=== PATIENT | male | born 1945 | race Caucasian/White ===

== ENCOUNTER 2018-08-26 13:45 | Emergency (ER) | payer OTHER ==
--- OUTSIDE RECORDS SUMMARY | 2018-08-26 13:47 | XMS REPORT ---
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
--- OUTSIDE RECORDS SUMMARY | 2018-08-26 13:47 | XMS REPORT ---
:1945 Author Organization e[employer] Care Team Providers Name Role Phone Lan Goldman Provider Role Unavailable Allergies, Adverse Reactions, Alerts Substance Reaction Event Type N.K.D.A. 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 Active Assessment Other specific arthropathies, not M12.812 Active elsewhere classified, left shoulder Assessment Pain in joint of left shoulder M25.512 Active Medications Medication Code Code Instructions Start End Status Dosage System Date Date aspirin ND 0 Active not defined Metoprolol [facility] 76376556124 25 MG Orally Active 1 tablet Tartrate Twice a day with food Valsartan ND 86092476003 80 MG Orally Active 1 tablet Once a day Apixaban [facility] [address]-23 2.5 MG Orally Active as directed Atorvastatin ND 61911789917 80 MG Orally Active 1 tablet Calcium Once a day Sertraline HCl [facility] 37522602136 100 MG Oral Active TK 1 T PO QD Valacyclovir ND 68688651984 500 MG Orally Active 1 tablet HCl Once a day Trazodone HCl [facility] 69205162957 50 MG Orally Active 1 tablet Once a day at bedtime as needed HydrOXYzine HCl [facility] 65979041145 10 MG Orally Active as directed Hydrocodone-Richard ND 99575383742 10-325 MG Oral Active (Schedule taminophen II Drug) TK 1 T PO Q 6 H PRF PAIN Alprazolam ND 62692568674 1 MG Oral Active (Schedule IV Drug) TK 1 T PO BID FOR 30 DAYS. Results No Known Results Summary Purpose eClinicalWorks Submission
--- NOTE | 2018-08-26 14:45 | ER ---
Nurse's Notes [facility] Name: Wallace Marroquin Age: 73 yrs Sex: Male : 1945 Arrival Date: 08/26/2018 Time: 13:48 Bed 17 Private MD: Diagnosis: Irritability and anger Presentation: 08/26 13:52 Presenting complaint: Patient states: denies suicidal or homicidal ideation. "I don't sv know why I'm here.". 13:52 Presenting complaint: states: "He has said that he's suicidal and he's sv progressively gotten more violent and yelling and I need him admitted. I'm scared of him.". Transition of care: patient was not received from another setting of care. Onset of symptoms is unknown. Risk Assessment: Do you want to hurt yourself or someone else? Patient reports no desire to harm self or others. Care prior to arrival: None. 13:52 Method Of Arrival: Ambulatory sv 13:52 Acuity: JOANIE 3 sv Triage Assessment: 13:54 General: Appears in no apparent distress. comfortable, well developed, Behavior is sv calm, cooperative, appropriate for age. Pain: Denies pain. Neuro: Level of Consciousness is awake, alert, obeys commands, Oriented to person, place, time, situation, Gait is steady. Respiratory: Respiratory effort is even, unlabored, Respiratory pattern is regular, symmetrical. Historical: - Allergies: 13:54 No Known Allergies; sv - PMHx: 13:54 Arthritis; Atrial Fib; spinal stenosis; sv - PSHx: 13:54 rotator cuff; Hernia repair; sv Screenin:23 Abuse screen: Denies threats or abuse. Nutritional screening: No deficits noted. em Tuberculosis screening: No symptoms or risk factors identified. Fall Risk None identified. Assessment: 14:23 General: Appears in no apparent distress. comfortable, Behavior is calm, cooperative, em denies SI/HI, reports being very frustrated with family dynamics, at bedside states he is been angry and needs to see someone. Pain: Denies pain. Neuro: Level of Consciousness is awake, alert, obeys commands. Cardiovascular: Capillary refill < 3 seconds Patient's skin is warm and dry. Respiratory: Airway is patent Respiratory effort is even, unlabored, Respiratory pattern is regular, symmetrical. Derm: Skin is intact, is healthy with good turgor, Skin is pink, warm \\T\\ dry. Musculoskeletal: Capillary refill < 3 seconds, Range of motion: intact in all extremities. Vital Signs: 13:54 BP 118 / 74; Pulse 68; Resp 16; Temp 98.9; Pulse Ox 96% ; Weight 96.62 kg; Height 5 ft. sv 11 in. (180.34 cm); Pain 0/10; 13:54 Body Mass Index 29.71 (96.62 kg, 180.34 cm) sv ED Course: 13:48 Patient arrived in ED. mr 13:53 Triage completed. sv 13:54 Arm band placed on. sv 14:00 Gonzalo Duvall LVN is Primary Nurse. em 14:01 Josiah Acuna PA is PHCP. jr8 14:01 Jethro Moreno MD is Attending Physician. jr8 14:23 Patient has correct armband on for positive identification. Bed in low position. Call em light in reach. Adult w/ patient. 14:56 No provider procedures requiring assistance completed. Patient did not have IV access em during this emergency room visit. Administered Medications: No medications were administered Outcome: 14:44 Discharge ordered by . jr8 14:56 Discharged to home ambulatory, with family. em 14:56 Condition: good 14:56 Discharge instructions given to patient, family, Instructed on discharge instructions, follow up and referral plans. Demonstrated understanding of instructions, follow-up care. 14:57 Patient left the ED. em Signatures: Lamar Leon RN RN [facility] mr DuvallGonzalo LVN LVN em Josiah Acuna PA PA jr8
--- NOTE | 2018-08-26 14:45 | EDPHYS ---
Physician Documentation [facility] Name: Wallace Marroquin Age: 73 yrs Sex: Male : 1945 Arrival Date: 08/26/2018 Time: 13:48 Bed 17 Private MD: ED Physician Jethro Moreno HPI: 08/26 21:53 This 73 yrs old Male presents to ER via Ambulatory with complaints of jr8 Suicidal Ideation. 21:53 The patient presents to the emergency department with depression. Past psychiatric jr8 history: Prior diagnosis: depression, the patient has not had a prior suicide gesture, the patient does not have a previous inpatient psychiatric history. Associated signs and symptoms: The patient has no apparent associated signs or symptoms. Severity of symptoms: At their worst the symptoms were moderate in the emergency department the symptoms are unchanged. It is unknown whether or not the patient has had similar symptoms in the past. The patient has not recently seen a physician. of patient brought patient in today for mood change and depression. Stated that he is very angry and irritable. Stated that she was very upset with him last night and told him if it was so bad to take a bottle of his Xanax. Patient proceeded to dump a bunch of pills in his mouth. Stated that he did not swallow them but was very upset with her and wanted to scare her. Promptly spit them out and washed them down the sink. Patient denies SI/HI. Stated that this all was started because he hates his mother in law and was tired of her demeaning and rude comments to him and couldn't take it any longer. Historical: - Allergies: 13:54 No Known Allergies; sv - PMHx: 13:54 Arthritis; Atrial Fib; spinal stenosis; sv - PSHx: 13:54 rotator cuff; Hernia repair; sv ROS: 21:53 Eyes: Negative for injury, pain, redness, and discharge, ENT: Negative for injury, jr8 pain, and discharge, Neck: Negative for injury, pain, and swelling, Cardiovascular: Negative for chest pain, palpitations, and edema, Respiratory: Negative for shortness of breath, cough, wheezing, and pleuritic chest pain, Abdomen/GI: Negative for abdominal pain, nausea, vomiting, diarrhea, and constipation, Back: Negative for injury and pain, MS/Extremity: Negative for injury and deformity, Skin: Negative for injury, rash, and discoloration, Neuro: Negative for headache, weakness, numbness, tingling, and seizure. 21:53 Psych: Positive for depression, Negative for homicidal ideation, suicide gesture, suicidal ideation. Exam: 21:53 Eyes: Pupils equal round and reactive to light, extra-ocular motions intact. Lids and jr8 lashes normal. Conjunctiva and sclera are non-icteric and not injected. Cornea within normal limits. Periorbital areas with no swelling, redness, or edema. ENT: Nares patent. No nasal discharge, no septal abnormalities noted. Tympanic membranes are normal and external auditory canals are clear. Oropharynx with no redness, swelling, or masses, exudates, or evidence of obstruction, uvula midline. Mucous membranes moist. Neck: Trachea midline, no thyromegaly or masses palpated, and no cervical lymphadenopathy. Supple, full range of motion without nuchal rigidity, or vertebral point tenderness. No Meningismus. Cardiovascular: Regular rate and rhythm with a normal S1 and S2. No gallops, murmurs, or rubs. Normal PMI, no JVD. No pulse deficits. Respiratory: Lungs have equal breath sounds bilaterally, clear to auscultation and percussion. No rales, rhonchi or wheezes noted. No increased work of breathing, no retractions or nasal flaring. Abdomen/GI: Soft, non-tender, with normal bowel sounds. No distension or tympany. No guarding or rebound. No evidence of tenderness throughout. Back: No spinal tenderness. No costovertebral tenderness. Full range of motion. Skin: Warm, dry with normal turgor. Normal color with no rashes, no lesions, and no evidence of cellulitis. MS/ Extremity: Pulses equal, no cyanosis. Neurovascular intact. Full, normal range of motion. Neuro: Awake and alert, GCS 15, oriented to person, place, time, and situation. Cranial nerves II-XII grossly intact. Motor strength 5/5 in all extremities. Sensory grossly intact. Cerebellar exam normal. Normal gait. 21:53 Psych: Behavior/mood is cooperative, angry, Affect is animated, Oriented to person, place, time, Patient has no thoughts/intents to harm self or others. Judgement / Insight is normal. Memory is normal. Delusions/hallucinations are not present. Vital Signs: 13:54 BP 118 / 74; Pulse 68; Resp 16; Temp 98.9; Pulse Ox 96% ; Weight 96.62 kg; Height 5 ft. sv 11 in. (180.34 cm); Pain 0/10; 13:54 Body Mass Index 29.71 (96.62 kg, 180.34 cm) sv MDM: 14:30 Patient medically screened. jr8 14:44 Data reviewed: vital signs, nurses notes, and as a result, I will discharge patient. jr8 Data interpreted: Pulse oximetry: on room air is 96 %. Interpretation: normal. Counseling: I had a detailed discussion with the patient and/or guardian regarding: the historical points, exam findings, and any diagnostic results supporting the discharge/admit diagnosis, the need for outpatient follow up, a family practitioner, a psychiatrist, to return to the emergency department if symptoms worsen or persist or if there are any questions or concerns that arise at home. 21:53 ED course: Discussed with patient and that patient is very angry. Needs to use jr8 calming techniques and remove himself from the toxic environment so it does not get worse. Explained to him that he had bad judgement by acting as if he was going to swallow all the pills. Otherwise currently does not display any signs of SI and is of sound mind currently. Therefore if he wants to leave and not be evaluated it is at his discretion and that I cannot hold him against his will. I further advised patient to see a private psychiatrist since the AR is not helping him and to continue new antidepressant medication for now unless he started to have acute new mood changes or Suicidal thoughts. Everybody was good with plan and would follow up . Administered Medications: No medications were administered Disposition: 17:14 Co-signature as Attending Physician, Jethro Moreno MD. ma2 Disposition: 08/26/18 14:44 Discharged to Home. Impression: Irritability and anger. - Condition is Stable. - Discharge Instructions: Tips for Managing Your Anger, Suicidal Feelings: How to Help Yourself, Helping Someone Who is Suicidal. - Medication Reconciliation Form, Thank You Letter, Antibiotic Education, Prescription Opioid Use form. - Follow up: Private Physician; When: 2 - 3 days; Reason: Recheck today's complaints, Continuance of care, Re-evaluation by your physician. - Problem is new. - Symptoms have improved. Signatures: Lamar Leon RN RN sv Gonzalo Duvall, CHARGING MANIPULATOR CHARGING MANIPULATOR em Josiah Acuna PA PA jr8 Jethro Moreno MD MD ma2 Corrections: (The following items were deleted from the chart) 14:57 14:44 08/26/2018 14:44 Discharged to Home. Impression: Irritability and anger. em Condition is Stable. Forms are Medication Reconciliation Form, Thank You Letter, Antibiotic Education, Prescription Opioid Use. Follow up: Private Physician; When: 2 - 3 days; Reason: Recheck today's complaints, Continuance of care, Re-evaluation by your physician. Problem is new. Symptoms have improved. jr8
== END 2018-08-26 14:57 | disposition home or self-care (01) ==
LOC: ER 13:45
DX: R45.4 Irritability and anger (principal)
CPT/HCPCS: 99281

== ENCOUNTER 2019-12-11 07:36 | Day surgery (SDC) | payer OTHER ==
--- NOTE | 2019-12-07 16:53 | RAD REPORT ---
EXAM DESCRIPTION: RAD - Chest Pa And Lat (2 Views) - 12/07/2019 4:33 pm CLINICAL HISTORY: pre op Chest pain. COMPARISON: Chest Pa And Lat (2 Views) dated 05/30/2018; Chest Pa And Lat (2 Views) dated 07/01/2017 FINDINGS: The lungs are clear. The heart is mildly enlarged in size with a tortuous thoracic aorta. No displaced fractures.
[2019-12-07 17:05] LABS: BUN Blood Urea Nitrogen 12 mg/dL (7-18); Bicarbonate 26 mmol/L (21-32); Glucose Level 82 mg/dL (74-106); Potassium 4.2 mmol/L (3.5-5.1); Sodium Level 142 mmol/L (136-145)
[2019-12-07 17:09] LABS: Absolute Lymphocytes (CBC) 1.3 K/uL (0.7-4.9); Basophils % 0.6 % (0-1.3); Hematocrit 47.1 % (39.6-49.0); RBC Red Blood Cell Count 4.29 M/uL (4.33-5.43)
[2019-12-07 20:06] LABS: Blood Morphology Comment NOTED (NOT SEEN); Macrocytosis 1+; Platelet Estimate ADEQ; Urine White Blood Cell Casts OK
--- NOTE | 2019-12-10 07:53 | EKG ---
Test Date: 2019-12-07 Test Time: 16:12:03 Template Layout Worker: TG MEASUREMENT RESULTS: Intervals: Rate: 71 TX: QRSD: 104 QT: 400 QTc: 434 Honor: P: TX: QRS: 57 T: 49 INTERPRETIVE STATEMENTS: Atrial fibrillation Abnormal ECG Compared to ECG 07/01/2017 17:23:16 No significant changes Electronically Signed On 12-10-19 07:49:57 CDT by Lee Foreman
--- OUTSIDE RECORDS SUMMARY | 2019-12-11 07:38 | XMS REPORT | Continuity of Care Document ---
:1945 Author Organization [facility] t Address [address] [place] [address] Care Team Providers Name Role Phone Radiology Attending Clinician Unavailable Doctor Unassigned, Name Attending Clinician Unavailable Mesfin Bullard MD Attending Clinician Problems Condition Condition Condition Status Onset Resolution Last Treating Co mments Source Name Details Category Date Date Treatment Clinician Date Unspecifie Unspecifie Problem Active [facility] rotator d rotator Luke s - cuff tear cuff tear Martín ana m or rupture or rupture l of left of left Outpati shoulder, shoulder, ent not not Clinics specified specified as as traumatic traumatic Complete Complete Problem Active [facility] of [facility] - left left Memoria rotator rotator l cuff cuff Outpati ent Clinics Other Other Problem Active [facility] specific specific [facility] - arthropath arthropath Me moria ies, not ies, not l elsewhere elsewhere Outp ati classified classified en t , left , left Clinics shoulder shoulder Allergies, Adverse Reactions, Alerts This patient has no known allergies or adverse reactions. Medications Ordered Filled Start Stop Current Ordering Indication Dosage Frequency Signature Comments Components Source Medication Medication Date Date Medication? Clinician (SIG) Name Name aspirin aspirin Yes Lan not [facility] Goldman defined [facility] Metoprolol Metoprolol Yes Lan [address] [facility] [address] Tartrate Tartrate Goldman with food Ayanna kes - [facility] Clinics Valsartan Valsartan Yes Lan [address] [facility] Goldman [facility] Apixaban Apixaban Yes Lan as [facility] Goldman directed [facility] Atorvastati Atorvastati Yes Lan [address] [facility] n Calcium n Calcium Goldman [facility] Sertraline Sertraline Yes Lan TK [address] [facility] HCl HCl Goldman QD [facility] Valacyclovi Valacyclovi Yes Lan [address] [facility] r HCl r HCl Goldman [facility] Trazodone Trazodone Yes Lan [address] [facility] HCl HCl Goldman at bedtime [facility] - as needed [facility] HydrOXYzine HydrOXYzine Yes Lan as [facility] HCl HCl Goldman directed [facility] Hydrocodone Hydrocodone Yes Lan (Schedule [facility] -Acetaminop -Acetaminop Goldman II Drug) Ayannakes - hen hen TK 1 T PO Memoria Q 6 H PRF l PAIN Outpati ent Clinics Alprazolam Alprazolam Yes Lan (Schedule [facility] Goldman IV Drug) Lukes - TK 1 T PO Memoria BID FOR 30 l DAYS. Outpati ent Clinics Procedures This patient has no known procedures. Encounters Start End Encounter Admission Attending Care Care Encounter Source Date/Time Date/Time Type Type Clinicians Facility Department ID 2019-11-13 2019-11-13 Hospital Radiology [facility] [id number] 14:10:00 23:59:00 Encounter Sandra [id number] [place] [id number] [place] [id number] 2019-11-13 2019-11-13 Orders Doctor CLYDE [id number] 00:00:00 00:00:00 Only Unassigned, MARIA L [id number] [place] [id number] [id number] 2019-07-08 2019-07-08 Emergency Zechariah Bullard [facility] [id number] 20:24:19 23:55:00 Zechariah Bullard [id number] [place] [id number] [place] [id number] 2018-04-13 2018-04-13 [facility] [id number] [facility] 09:12:00 09:12:00 [facility] 2018-04-05 2018-04-05 [facility] [id number] [facility] 13:30:00 13:30:00 t [facility] Results This patient has no known results.
[2019-12-11] MEDS ORDERED: FENTANYL CITR 100 MCG/2 ML ONE (08:26)
[2019-12-11] MEDS ORDERED: LIDOCAINE 1% MPF 5 ML VIAL ONE (08:27)
[2019-12-11] MEDS ORDERED: propofoL 200 MG/20 ML VIAL IV ONE (08:27)
[2019-12-11] MEDS ORDERED: MIDAZOLAM HCL 2 MG/2 ML INJ ONE (08:27)
[2019-12-11] MEDS ORDERED: ROCURONIUM 50 MG/5 ML VIAL IV ONE (08:27)
[2019-12-11] MEDS ORDERED: CEFAZOLIN/SWI 1gm 1 GM/10 ML SYR ONE (09:00)
[2019-12-11] MEDS: Ringers Lactate 1,000 ML IV ONE ×2 (09:00→09:58)
[2019-12-11] MEDS ORDERED: LIDOCAINE JELLY 2%- 5 ML TUBE ONE (09:10)
[2019-12-11] MEDS ORDERED: dexAMETHasone 10 MG/ML VIAL ONE (09:49)
[2019-12-11] MEDS ORDERED: GLYCOPYRROLATE 0.2 MG/ML SYR ONE (09:49)
[2019-12-11] MEDS ORDERED: NEOSTIGMINE 1 MG/ML -5 ML ONE (09:50)
[2019-12-11] MEDS ORDERED: ONDANSETRON 4 MG/2 ML VIAL ONE (09:50)
[2019-12-11] MEDS ORDERED: KETOROLAC 30 MG/ML INJ ONE (09:50)
[2019-12-11] MEDS: HYDROMORPHONE HCL 1 MG/ML INJ ONE ×2 (10:15→10:25)
[2019-12-11] MEDS ORDERED: PROMETHAZINE INJ 25 MG/ML AMP ONE (10:23)
[2019-12-11] MEDS ORDERED: HYDROCODONE/APAP 5/325 MG TAB ONE (11:53)
[2019-12-11 13:48] VITALS: BP 138/80; TEMP 97.1; O2SAT 96
--- NOTE | 2019-12-11 20:16 | OP ---
Date of Procedure: 12/11/2019 Surgeon: Andrew Head MD Preoperative Diagnoses: Incarcerated tender umbilical hernia, chronic pancreatitis, morbid obesity. Postoperative Diagnoses: Incarcerated tender umbilical hernia, chronic pancreatitis, morbid obesity. Procedure: Open repair of tender incarcerated umbilical hernia with mesh. Anesthesia: General plus local. Indications: This is a case of a 74-year-old patient, who come to us with abdominal distention. He was diagnosed with diastasis recti, but also in the periumbilical region, the patient has an incarcer ated umbilical hernia. The benefits, alternatives, and risks of repair with possible mesh fully expl ained to the patient, which include, but not limited to infection, bleeding, damage to adjacent struc tures, anesthesia complication, recurrence, UT, and even . He also understands this may not rel ieve the symptoms. He might need more than one surgical intervention. He also explained the use of mesh. Mesh explanation was explained in details. All the questions were answered to his satisfactio n. He did consent for the use of mesh. He was advised the importance of also losing weight and usag e of abdominal binder and no heavy lifting. He signed a consent. Description Of Procedure: The patient was brought to the operating room, placed in supine position, and anesthesia was done without complication. Abdominal area was prepped and draped in a sterile fas hion. Local anesthesia was applied after time-out and then a curvilinear incision was made in the in fraumbilical region. Incision was carried down to subcutaneous tissue. We noticed a hernia sac pres ent, from the skin, opened the hernia sac and noticed incarcerated omentum that have to be removed with the specimen since he cannot reduce properly. This was done with a Ching clamp and 0 ch romic and before the rest of the omentum was pushed back into the abdominal cavity, we inspected to m marcela sure there was no bleeding. At that moment, we proceeded to remove the hernia sac, clean the fas estela edges. We noticed that it will be better served with the use of mesh due to the size of the inci brannon and be able to reinforce the area since the patient more cephalad has diastasis recti within the fascia, although not broken in that area. So, we introduced a Ventralex mesh intraperitoneally and then the strap coming through the incision and the mesh was secured to the fascia and sutured to the fascia with #1 Prolene in multiple locations. Once the mesh is nice and flat, we proceeded to cut th e strap and then approximated the fascia edges with a oocbeu-gx-sfsis fashion #1 Prolene multiple linda es. The area was irrigated. Subcutaneous tissue was closed with 3-0 chromic and the skin in a subcu ticular fashion with 3-0 chromic and Steri-Strips on top. Sponge counts and instrument counts were c orrect. The patient tolerated the procedure well. The patient was sent to recovery in stable condit ion. Disposition: Home. Activity: As tolerated. No heavy lifting. Plan: Follow up in my office in 1 week call for appointment at [phone]. Keep area dry until he see me in my office in 1 week. Medication includes hydrocodone q.4 hours p.r.n. pain. The patient has only a few. He received his pain medication from his [facility]. We gave him enough just to con trol for the next few days and he should consult back with his pain management doctor for refills in the future. He was also explained the importance of smoking cessation and help was an offer. NI/JS Voice ID: [id number] Report ID: [id number]
== END 2019-12-11 11:53 | disposition home or self-care (01) ==
LOC: OR 07:36
PROVIDERS: ATTEND Surgery
PROC: 0WUF0JZ Supplement Abdominal Wall with Synthetic Substitute, Open Approach (ICD-10-PCS; principal; 2019-12-11 09:15)
DX: K42.0 Umbilical hernia with obstruction, without gangrene (principal); M62.08 Separation of muscle (nontraumatic), other site; K86.1 Other chronic pancreatitis; E66.01 Morbid (severe) obesity due to excess calories; I48.91 Unspecified atrial fibrillation; R94.31 Abnormal electrocardiogram [ECG] [EKG]; Q25.46 Tortuous aortic arch; E78.00 Pure hypercholesterolemia, unspecified; I11.9 Hypertensive heart disease without heart failure; F43.10 Post-traumatic stress disorder, unspecified; F17.210 Nicotine dependence, cigarettes, uncomplicated; Z79.01 Long term (current) use of anticoagulants; Z79.82 Long term (current) use of aspirin; Z79.899 Other long term (current) drug therapy
CPT/HCPCS: 49587; 93005; 85025; 80048; 36415; 82947; 88302; 71046; J2704; J2550; J3010; J1100; J1170; J2710; J0690; J7120; J2405; J2250

== ENCOUNTER 2020-09-17 16:32 | Inpatient (IN) | payer OTHER ==
--- OUTSIDE RECORDS SUMMARY | 2020-09-17 16:36 | XMS REPORT | Continuity of Care Document ---
:1945 Author Organization [facility] t Address [address] [place] [address] Care Team Providers Name Role Phone Lexie LONDON Attending Clinician Problems Condition Condition Condition Status [...] Date Date Medication? Clinician (SIG) Name Name Atorvastati Atorvastati Yes Lan 1 tablet [facility] [...] bedtime [facility] - [facility] needed [facility] HydrOXYzine HydrOXYzine Yes Lan as [facility] HCl HCl Goldman directed [facility] Hydrocodone Hydrocodone Yes Lan (Schedule [facility] -Acetaminop -Acetaminop Goldman II Drug) [facility]ukes - hen hen TK 1 T PO Memoria Q 6 H PRF l PAIN [facility] Alprazolam Alprazolam Yes Lan (Schedule [facility] Goldman IV Drug) Lukes - TK 1 T PO Memoria BID FOR 30 l DAYS. [facility] aspirin aspirin Yes Lan not [facility] Goldman defined [facility] Metoprolol Metoprolol Yes Lan [address] Tartrate Tartrate Goldman with food Ayanna kes - [facility] Valsartan Valsartan Yes Lan [address] [facility] [facility] Apixaban Apixaban Yes Lan as [facility] Goldman directed kes - [facility] ent [facility] Procedures This patient has no known procedures. Encounters Start End Encounter Admission Attending Care Care Encounter Source Date/Time Date/Time Type Type Clinicians Facility Department ID 2020-08-30 2020-08-30 Office [facility] [id number] 08:23:34 09:30:16 Visit Caren Flores [id number] [place] [id number] [place] [id number] [address] 2018-04-13 2018-04-13 [place]patient [place] [id number] [address] 09:12:00 09:12:00 t [facility] 2018-04-05 2018-04-05 [facility] [id number] 13:30:00 13:30:00 t [facility] Results This patient has no known results.
[2020-09-17 20:21] LABS: Basophils % 1.4 % (0-1.3); Hematocrit 33.1 % (39.6-49.0); Lymphocytes % 24.1 % (15.3-44.8); MPV 8.5 fL (7.6-11.3); RBC Red Blood Cell Count 3.63 M/uL (4.33-5.43)
[2020-09-17 20:27] LABS: Protime INR 1.13
--- NOTE | 2020-09-17 20:51 | RAD REPORT ---
EXAM DESCRIPTION: RAD - Foot Left 3 View - 09/17/2020 8:43 pm CLINICAL HISTORY: Left Foot pain FINDINGS: No fracture or dislocation is seen.
[2020-09-17 20:59] LABS: ALT/SGPT 24 U/L (12-78); Albumin 3.4 g/dL (3.4-5.0); Alkaline Phosphatase 87 U/L (45-117); BUN Blood Urea Nitrogen 12 mg/dL (7-18); Bicarbonate 25 mmol/L (21-32); Bilirubin Direct < 0.1 mg/dL (0-0.2); Bilirubin Total 0.4 mg/dL (0.2-1.0); Glucose Level 103 mg/dL (74-106); NT PRO-BNP 1354 pg/mL (<125); Protein, Total 7.4 g/dL (6.4-8.2); Sodium Level 137 mmol/L (136-145); Troponin (Emerg Dept Use Only) < 0.02 ng/mL (0.0-0.045)
[2020-09-17 21:00] LABS: AST/SGOT 20 U/L (15-37); Magnesium 2.1 mg/dL (1.8-2.4); Potassium 4.6 mmol/L (3.5-5.1)
--- NOTE | 2020-09-17 21:15 | RAD REPORT ---
EXAM DESCRIPTION: Jeremy Single View09/17/2020 8:42 pm CLINICAL HISTORY: Chest pain COMPARISON: none FINDINGS: The lungs appear clear of acute infiltrate. The heart is mildly to moderately enlarged IMPRESSION: No acute abnormalities displayed
--- NOTE | 2020-09-17 22:07 | EDPHYS ---
Physician Documentation [facility] [place] Name: Wallace Marroquin Age: 75 yrs Sex: Male : 1945 Arrival Date: 09/17/2020 Time: 16:34 Bed 20 Private MD: ED Physician Art Martinez HPI: 09/17 20:00 This 75 yrs old Male presents to ER via Ambulatory with complaints of afib, cp Shortness Of Breath, Dizziness. 20:00 The patient has shortness of breath with light activity. cp 20:00 Onset: The symptoms/episode began/occurred gradually, and became worse over past cp several weeks. Duration: The symptoms are intermittent, with exertion. Associated signs and symptoms: Pertinent positives: chest pain, multiple falls. Historical: - Allergies: 16:53 No Known Allergies; jl7 - Home Meds: 16:53 Amiodarone Oral [Active]; Aspirin Oral [Active]; Metoprolol Tartrate Oral [Active]; jl7 Eliquis oral oral [Active]; atorvastatin Oral [Active]; [place] 10-325 mg Oral tab [Active]; - PMHx: 16:53 Arthritis; Atrial Fib; spinal stenosis; jl7 - PSHx: 16:53 Hernia repair; rotator cuff; jl7 - Immunization history:: Adult Immunizations up to date, Client reports receiving the 2nd dose of the Covid vaccine. - Social history:: Smoking status: Patient reports the use of cigarette tobacco products, smokes one-half pack cigarettes per day. ROS: 20:05 Constitutional: Negative for body aches, chills, fever, poor PO intake. cp 20:05 Eyes: Negative for injury, pain, redness, and discharge. cp 20:05 Cardiovascular: Positive for chest pain. 20:05 Respiratory: Positive for shortness of breath, on exertion. Negative for cough, wheezing. 20:05 Abdomen/GI: Negative for abdominal pain, nausea, vomiting, and diarrhea, black/tarry stool, rectal bleeding. 20:05 Skin: Positive for ecchymosis, of the buttocks. 20:05 Neuro: Negative for altered mental status, headache, speech changes, syncope. 20:05 All other systems are negative. Exam: 17:00 ECG was reviewed by the Attending Physician. cp 20:10 Constitutional: The patient appears in no acute distress, alert, awake, cp non-diaphoretic, non-toxic, well developed, well nourished. 20:10 Head/Face: Normocephalic, atraumatic. cp 20:10 Eyes: Periorbital structures: appear normal, Pupils: equal, round, and reactive to light and accomodation, Extraocular movements: intact throughout, Conjunctiva: normal, no exudate, no injection, Sclera: no appreciated abnormality, Lids and lashes: appear normal, bilaterally. 20:10 ENT: External ear(s): are unremarkable, Ear canal(s): cerumen impaction, that is moderate, occluding the right ear canal, Examination of the other ear shows no obvious abnormality, Nose: is normal, Mouth: Lips: moist, Oral mucosa: moist, Posterior pharynx: is normal, airway is patent, no erythema, no exudate. 20:10 Neck: ROM/movement: is normal, is supple, without pain, no range of motions limitations. 20:10 Chest/axilla: Inspection: normal, Palpation: is normal, no crepitus, no tenderness. 20:10 Cardiovascular: Rate: normal, Rhythm: irregular, JVD: is not appreciated. 20:10 Respiratory: the patient does not display signs of respiratory distress, Respirations: normal, no use of accessory muscles, no retractions, labored breathing, is not present, Breath sounds: bronchial sounds, that are mild, are heard diffusely. 20:10 Abdomen/GI: Inspection: obese Palpation: abdomen is soft and non-tender, in all quadrants. Vital Signs: 16:46 BP 135 / 73; Pulse 65; Resp 17; Temp 98.3(O); Pulse Ox 98% on R/A; Weight 108.86 kg; jl7 Height 5 ft. 11 in. (180.34 cm); Pain 6/10; 19:56 BP 132 / 77 Supine; Pulse 61; wh 19:56 BP 132 / 82 Sitting; Pulse 62; wh 19:56 BP 128 / 79 Standing; Pulse 65; wh 21:29 BP 138 / 86; Pulse 61; Resp 18; Pulse Ox 100% on R/A; wh 09/18 00:29 BP 129 / 74; Pulse 75; Resp 18; Pulse Ox 100% ; ak2 09/17 16:46 Body Mass Index 33.47 (108.86 kg, 180.34 cm) jl7 MDM: 09/17 19:51 Patient medically screened. cp 20:30 Differential diagnosis: CHF exacerbation, Myocardial Infarction pneumonia, Pneumothorax cp pulmonary edema, Pulmonary Embolism Unstable Angina. 22:01 Data reviewed: vital signs, nurses notes, lab test result(s), EKG. cp 22:01 Physician consultation: Moses CONTI was called at 22:02, was contacted at 22:02, cp regarding admission, to the telemetry unit. 09/17 20:08 Order name: Basic Metabolic Panel 09/17 20:08 Order name: CBC with Diff 09/17 20:08 Order name: LFT's 09/17 20:08 Order name: Magnesium 09/17 20:08 Order name: NT PRO-BNP 09/17 20:08 Order name: PT-INR 09/17 20:08 Order name: Troponin (emerg Dept Use Only) 09/17 20:23 Order name: CBC with Automated Diff; Complete Time: 20:44 EDMS 09/17 20:44 Interpretation: Normal except: RBC 3.63; HGB 10.8; HCT 33.1; MCV 91.2; MCH 29.6; RDW cp 19.8; BASO% 1.4. 09/17 20:30 Order name: Protime (+INR); Complete Time: 20:44 EDMS 09/17 21:01 Order name: Basic Metabolic Panel; Complete Time: 21:10 EDMS 09/17 21:19 Interpretation: Reviewed. 09/17 21:01 Order name: Liver (Hepatic) Function; Complete Time: 21:10 EDMS 09/17 21:01 Order name: Troponin (Emerg Dept Use Only); Complete Time: 21:10 EDMS 09/17 21:01 Order name: NT PRO-BNP; Complete Time: 21:10 EDMS 09/17 21:01 Order name: Magnesium; Complete Time: 21:10 EDMS 09/17 20:08 Order name: XRAY Chest (1 view) 09/17 20:08 Order name: EKG; Complete Time: 20:09 09/17 20:08 Order name: Cardiac monitoring 09/17 20:08 Order name: EKG - Nurse/Tech 09/17 20:08 Order name: IV Saline Lock 09/17 20:08 Order name: Labs collected and sent 09/17 20:08 Order name: O2 Per Protocol 09/17 20:08 Order name: O2 Sat Monitoring 09/17 20:09 Order name: XRAY Foot LEFT 3 View 09/17 20:09 Order name: CT Traumagram (Head C Spine CAP W Con) 09/17 20:53 Order name: RAD; Complete Time: 20:57 EDNJ 09/17 20:57 Interpretation: Report reviewed. 09/17 21:15 Order name: RAD; Complete Time: 21:16 EDNJ 09/17 21:17 Interpretation: Report reviewed. 09/17 22:04 Order name: COVID-19 : Document "Date of Symptom Onset" if Symptomatic. 09/17 22:39 Order name: CORONAVIRUS EDNJ 09/17 23:55 Order name: SARS-COV-2 RT PCR EDMS EC:00 Rate is 65 beats/min. Rhythm is irregular. QRS interval is normal. QT interval is cp normal. Interpreted by me. Reviewed by me. Administered Medications: No medications were administered Disposition: 09/18 16:51 Co-signature as Attending Physician, Art Martinez MD I agree with the assessment and [facility] plan of care. Disposition: 09/17/20 22:06 Hospitalization ordered by Moses Amato for Observation. Preliminary diagnosis are Fall on same level from slipping, tripping and stumbling, Chest pain, unspecified, Chronic atrial fibrillation. - Bed requested for Telemetry/MedSurg (observation). - Status is Observation. ak2 - Condition is Stable. - Problem is new. - Symptoms have improved. Signatures: Dispatcher [employer] EDNJ Art Martinez MD MD cha Page, Corey, PA PA cp Garcia, Cindy RN RN Benita Powers RN RN jl7 Kapolka, Anthony ak2 Corrections: (The following items were deleted from the chart) 09/17 20:10 20:10 This 75 yrs old Male presents to ER via Ambulatory with complaints of cp afib, Shortness Of Breath, Dizziness. cp 22:07 22:06 Hospitalization Ordered by Chester Jackson MD for Observation. Preliminary cp diagnosis is Fall on same level from slipping, tripping and stumbling; Other chest pain. Bed requested for Telemetry/MedSurg (observation). Status is Observation. Condition is Stable. Problem is new. Symptoms have improved. cp :25 22:07 09/17/2020 22:06 Hospitalization Ordered by Chester Jackson MD for Observation. cp Preliminary diagnosis is Fall on same level from slipping, tripping and stumbling; Chest pain, unspecified; Chronic atrial fibrillation. Bed requested for Telemetry/MedSurg (observation). Status is Observation. Condition is Stable. Problem is new. Symptoms have improved. cp 09/18 00:09 09/17 22:25 09/17/2020 22:06 Hospitalization Ordered by Moses CONTI for cg Observation. Preliminary diagnosis is Fall on same level from slipping, tripping and stumbling; Chest pain, unspecified; Chronic atrial fibrillation. Bed requested for Telemetry/MedSurg (observation). Status is Observation. Condition is Stable. Problem is new. Symptoms have improved. 09/18 00:53 00:09 09/17/2020 22:06 Hospitalization Ordered by Moses CONTI for Observation. ak2 Preliminary diagnosis is Fall on same level from slipping, tripping and stumbling; Chest pain, unspecified; Chronic atrial fibrillation. Bed requested for Telemetry/MedSurg (observation). Status is Observation. Condition is Stable. Problem is new. Symptoms have improved. cg
--- NOTE | 2020-09-17 22:07 | ER ---
Nurse's Notes [facility] Name: Wallace Marroquin Age: 75 yrs Sex: Male : 1945 Arrival Date: 09/17/2020 Time: 16:34 Bed 20 Private MD: Diagnosis: Fall on same level from slipping, tripping and stumbling;Chest pain, unspecified;Chronic atrial fibrillation Presentation: 09/17 16:46 Chief complaint: Patient states: Shortness of breath, lightheaded and falling over the jl7 past year and it's progressively gotten worse, last fall was Wednesday and reports hematoma to left buttocks. Coronavirus screen: Client denies travel out of the [place] in the last 14 days. At this time, the client does not indicate any symptoms associated with coronavirus-19. Ebola Screen: No symptoms or risks identified at this time. Initial Sepsis Screen: Does the patient meet any 2 criteria? No. Patient's initial sepsis screen is negative. Does the patient have a suspected source of infection? No. Patient's initial sepsis screen is negative. Risk Assessment: Do you want to hurt yourself or someone else? Patient reports no desire to harm self or others. Onset of symptoms is unknown. Care prior to arrival: None. 16:46 Method Of Arrival: Ambulatory [facility] 16:46 Acuity: JOANIE 3 jl7 Triage Assessment: 20:00 General: Appears in no apparent distress. Behavior is calm, cooperative. Respiratory: wh No deficits noted. 20:00 Respiratory: Onset: The symptoms/episode began/occurred x1 year, worsening x1 week. 20:01 Respiratory: Reports Historical: - Allergies: 16:53 No Known Allergies; jl7 - Home Meds: 16:53 Amiodarone Oral [Active]; Aspirin Oral [Active]; Metoprolol Tartrate Oral [Active]; jl7 Eliquis oral oral [Active]; atorvastatin Oral [Active]; [place] 10-325 mg Oral tab [Active]; - PMHx: 16:53 Arthritis; Atrial Fib; spinal stenosis; jl7 - PSHx: 16:53 Hernia repair; rotator cuff; jl7 - Immunization history:: Adult Immunizations up to date, Client reports receiving the 2nd dose of the Covid vaccine. - Social history:: Smoking status: Patient reports the use of cigarette tobacco products, smokes one-half pack cigarettes per day. Screenin:59 Abuse screen: Denies threats or abuse. Denies injuries from another. Nutritional wh screening: No deficits noted. Tuberculosis screening: No symptoms or risk factors identified. Fall Risk None identified. Assessment: 19:59 Pain: Denies pain. Cardiovascular: Rhythm is atrial fibrillation. Respiratory: Airway. 20:00 Respiratory: Breath sounds are clear bilaterally. 20:01 Respiratory: Respiratory effort is even, unlabored. 09/18 00:35 General: Report called to rn. ak2 Vital Signs: 09/17 16:46 BP 135 / 73; Pulse 65; Resp 17; Temp 98.3(O); Pulse Ox 98% on R/A; Weight 108.86 kg; jl7 Height 5 ft. 11 in. (180.34 cm); Pain 6/10; 19:56 BP 132 / 77 Supine; Pulse 61; wh 19:56 BP 132 / 82 Sitting; Pulse 62; wh 19:56 BP 128 / 79 Standing; Pulse 65; wh 21:29 BP 138 / 86; Pulse 61; Resp 18; Pulse Ox 100% on R/A; wh 09/18 00:29 BP 129 / 74; Pulse 75; Resp 18; Pulse Ox 100% ; ak2 09/17 16:46 Body Mass Index 33.47 (108.86 kg, 180.34 cm) jl7 ED Course: 09/17 16:34 Patient arrived in ED. as 16:50 Triage completed. jl7 16:53 Arm band placed on right wrist. Patient placed in waiting room, Patient notified of jl7 wait time. EKG completed in triage. Results shown to MD. 19:31 Tremayne Jimenez, RN is Primary Nurse. 19:34 Art Jang PA is PHCP. cp 19:34 Leonid Lujan MD is Attending Physician. cp 19:52 Art Martinez MD is Attending Physician. cp 19:59 Patient has correct armband on for positive identification. 19:59 No provider procedures requiring assistance completed. Inserted saline lock: 20 gauge wh in right antecubital area, using aseptic technique. 22:06 Chester Jackson MD is Hospitalizing Provider. cp 22:25 Moses Amato PA is Hospitalizing Provider. cp Administered Medications: No medications were administered Outcome: 22:06 Decision to Hospitalize by Provider. keith 09/18 00:53 Patient left the ED. ak2 Signatures: Valencia Head Corey, PA PA cp Leal, Jahala RN RN jl7 Tremayne Jimenez RN RN Indio Benavidez ak2
[2020-09-18] MEDS ORDERED: ACETAMINOPHEN 500 MG TAB PO PRN (00:36)
[2020-09-18] MEDS ORDERED: ONDANSETRON 4 MG/2 ML VIAL IV PRN (00:36)
[2020-09-18] MEDS ORDERED: LORazepam 2 MG/ML VIAL IV PRN (00:36)
[2020-09-18] MEDS ORDERED: ALBUTEROL 2.5 MG/3 ML NEB SOL NEB PRN (00:36)
[2020-09-18] MEDS: HYDROCODONE/APAP 10/325 TAB PO PRN ×4 (00:49→22:04)
[2020-09-18 01:04] VITALS: BMI 33.0
[2020-09-18] MEDS: GABAPENTIN 300 MG CAP PO SCH ×4 (02:09→21:05)
[2020-09-18] MEDS: TRAZODONE 50 MG TABLET PO PRN ×2 (02:09→21:05)
--- NOTE | 2020-09-18 04:30 | P.HP ---
Certification for Inpatient Patient admitted to: Observation With expected LOS: <2 Midnights Patient will require the following post-hospital care: None Practitioner: I am a practitioner with admitting privileges, knowledge of patient current condition, hospital course, and medical plan of care. Services: Services provided to patient in accordance with Admission requirements found in Title 42 Section 412.3 of the Code of Federal Regulations <Moses Amato - Last Filed: 09/18/20 04:38> Patient History Date of Service: 09/18/20 Reason for admission: presyncope History of Present Illness: Mr. Marroquin is a 75 yo M with afib, COPD, and HTN who reports to the ED for episodes of presyncope. He says they have been happening for a year and have been getting progressively worse. On Wednesday, he says he was smoking a cigarette when he became SOB, dizzy and fell. He says he remembers the event and did not lose consciousness and after 5 minutes he returned to baseline. He says the episodes happen with exertion. He reports mild chest tightness that occurs with the events. He was recently seen by cardiology and had an abnormal stress test. Reports lightheadedness, dizziness. Denies nausea, vomiting, palpitations, vision changes, loss of bowel or urine. He smokes 1/2 ppd. He drinks 2 20oz cans of beer daily. BNP 1534. - Past Medical/Surgical History Has patient received pneumonia vaccine in the past: Yes Diabetic: No -: afib -: arthritis -: spinal stenosis -: COPD -: R eye corneal ulcer -: hernia repair X4 -: rotator cuff repair X3 -: antonio knee replacement -: R leg aneurysm repair - Family History Father -: Heart disease, Cancer, Seizures Mother -: Cancer, Seizures - Social History Smoking Status: Current every day smoker Alcohol use: Yes CD- Drugs: No Caffeine use: Yes Place of Residence: Home <Moses Amato - Last Filed: 09/18/20 04:38> Date of Service: 09/18/20 <Jethro Dangelo - Last Filed: 09/19/20 09:31> Allergies bee venom protein (honey bee) Allergy (Verified 09/18/20 01:12) Anaphylaxis Review of Systems General: Unremarkable Eyes: Unremarkable ENT: Unremarkable Respiratory: Shortness of Breath, SOB with Excertion, As per HPI Cardiovascular: Chest Pain, Edema, Light Headedness, As per HPI Gastrointestinal: Unremarkable Genitourinary: Unremarkable Musculoskeletal: Back Pain, As per HPI Integumentary: Bruising, As per HPI Neurological: Unremarkable Lymphatics: Unremarkable <Moses Amato - Last Filed: 09/18/20 04:38> Physical Examination - Vital Signs Temperature: 96.4 F Blood Pressure: 129/74 Pulse: 75 Respirations: 18 Pulse Ox (%): 97 - Physical Exam General: Alert, In no apparent distress, Oriented x3, Cooperative HEENT: Atraumatic, Normocephalic, PERRLA, Mucous membr. moist/pink, EOMI, Sclerae nonicteric Neck: Supple, 2+ carotid pulse no bruit, JVD not distended, No Thyromegaly, No LAD Respiratory: Diminished, Expiratory wheezes Cardiovascular: Normal pulses, No gallops, No rubs, Edema, Irregular heart rate/rhythm Capillary refill: <2 Seconds Gastrointestinal: Normal bowel sounds, Soft and benign, Non-distended, No ascites, No tenderness, No masses, No rebound, No guarding Musculoskeletal: No clubbing, No swelling, No contractures, No erythema, No tenderness, No warmth Integumentary: No breakdown, No significant lesion, No warmth, No cyanosis, Rash(es), Tenderness/swelling, Erythema, Other (severe bruising on buttocks from fall ) Neurological: Normal speech, Normal strength at 5/5 x4 extr, Normal tone, Sensation intact, Cranial nerves 3-12 intact, Normal affect Lymphatics: No axilla or inguinal lymphadenopathy - Studies Laboratory Data (last 24 hrs) 09/17/20 20:10: PT 13.0 H, INR 1.13 09/17/20 20:10: WBC 8.50, Hgb 10.8 L, Hct 33.1 L, Plt Count 257 09/17/20 20:10: Sodium 137, Potassium 4.6, BUN 12, Creatinine 0.74, Glucose 103, Magnesium 2.1, Total Bilirubin 0.4, AST 20, ALT 24, Alkaline Phosphatase 87 <Moses Amato - Last Filed: 09/18/20 04:38> Assessment and Plan - Problems (Diagnosis) (1) Afib Current Visit: Yes Status: Chronic Qualifiers: Atrial fibrillation type: unspecified Qualified Code(s): I48.91 - Unspecified atrial fibrillation (2) COPD (chronic obstructive pulmonary disease) Current Visit: Yes Status: Chronic Qualifiers: COPD type: unspecified COPD Qualified Code(s): J44.9 - Chronic obstructive pulmonary disease, unspecified (3) Hypertension Current Visit: Yes Status: Chronic Qualifiers: Hypertension type: essential hypertension Qualified Code(s): I10 - Essential (primary) hypertension (4) Pre-syncope Current Visit: Yes Status: Acute - Plan cardiology consulted, on telemetry, trend troponins reconcile and continue home medications iron panel and b12/folate pending CIWA protocol and PRN ativan SCDs Discharge Plan: Home Plan to discharge in: 24 Hours - Advance Directives Does patient have a Living Will: Yes Does patient have a Durable POA for Healthcare: Yes - Code Status/Comfort Care Code Status Assessed: Yes (full code ) Critical Care: No Time Spent Managing Pts Care (In Minutes): 70 <Moses Amato - Last Filed: 09/18/20 04:38> Date of Service: 09/18/20 Subjective: Chart has been reviewed. Agree with plans as mentioned above. Physical Examination Vitals: Afebrile vital signs are stable General: Patient is awake and alert oriented to person place and time with no apparent distress Cardiovascular exam: Regular rate and rhythm Lungs: Clear bilaterally Diagnostic data has been reviewed ASST: 1. Near syncope with fall 2. History of atrial fibrillation on anti arrhythmic 3. History of hypertension PLAN: 1. Continue with current plan of care as mentioned above 2. Cardiology consultation <Jethro Dangelo - Last Filed: 09/19/20 09:31>
[2020-09-18 05:32] LABS: Absolute Lymphocytes (CBC) 1.6 K/uL (0.7-4.9); Basophils % 0.6 % (0-1.3); MPV 8.2 fL (7.6-11.3); RBC Red Blood Cell Count 3.36 M/uL (4.33-5.43)
[2020-09-18 06:05] LABS: ALT/SGPT 17 U/L (12-78); AST/SGOT 12 U/L (15-37); Albumin 2.9 g/dL (3.4-5.0); Alkaline Phosphatase 66 U/L (45-117); BUN Blood Urea Nitrogen 12 mg/dL (7-18); Bicarbonate 28 mmol/L (21-32); Bilirubin Total 0.4 mg/dL (0.2-1.0); Ferritin 24.1 ng/mL (26-388); Glucose Level 122 mg/dL (74-106); HDL Cholesterol 73 mg/dL (40-60); LDL Cholesterol, Calculated 66 (<130); Magnesium 2.1 mg/dL (1.8-2.4); Phosphorus 3.7 mg/dL (2.5-4.9); Potassium 3.9 mmol/L (3.5-5.1); Protein, Total 6.2 g/dL (6.4-8.2); Sodium Level 142 mmol/L (136-145); Thyroid Stimulating Hormone 0.788 uIU/mL (0.360-3.740); Transferrin 290 mg/dL (200-360)
[2020-09-18] MEDS ORDERED: POTASSIUM CL SA 10 MEQ TAB PO ONE (08:00)
--- NOTE | 2020-09-18 08:43 | EKG ---
Test Date: 2020-09-17 Test Time: 16:45:39 Edger Feeder: DARRION MEASUREMENT RESULTS: Intervals: Rate: 65 [place]: QRSD: 96 QT: 430 QTc: 447 [place]: P: [place]: QRS: 42 T: 35 INTERPRETIVE STATEMENTS: Atrial fibrillation Abnormal ECG Compared to ECG 12/07/2019 16:12:03 No significant changes Electronically Signed On 09-18-20 08:41:35 CDT by Lee Foreman
--- NOTE | 2020-09-18 11:13 | RAD REPORT ---
EXAM DESCRIPTION: CT - Head C Spine Cap W Con - 09/18/2020 7:09 am [facility]Lex: CT HEAD AND CERVICAL SPINE WITHOUT CONTRAST AND CT CHEST ABDOMEN PELVIS WITH CONTRAST CLINICAL HISTORY: Fall. TECHNIQUE: Axial, coronal, and sagittal images through the brain were performed in the absence of in travenous contrast. CT of the cervical spine was performed without contrast. Axial, coronal, and sagittal reconstructions were created and sent to PACS. CT of the chest, abdomen, and pelvis was performed following intravenous administration of iodinated contrast. Oral contrast was not administered. Axial, coronal, and sagittal reconstructions were creat ed and sent to PACS. These exams were performed according to our departmental dose-optimization program which includes use of Automated Exposure Control, adjustment of the mA and/or kV according to patient size and/or use o f iterative reconstruction technique. COMPARISON: None. FINDINGS: CT Head: There is diffuse age-appropriate atrophy seen throughout the brain parenchyma. Mild periventricular w abdiel matter changes are seen to be present and there is mild ex vacuo dilatation of the ventricular s ystem. There is no intra-axial or extra-axial bleed. There is no mass or mass effect. All Small mucosal retention cyst in the right maxillary sinus. The remaining visualized paranasal sinuses and mastoid air cells are patent. No fracture is identified. CT cervical spine: No acute osseous abnormality identified. Vertebral body height and alignment are maintained. No atlan todental interval widening. Atlantoaxial alignment is maintained. Small multilevel posterior disc ost eophyte complexes with no significant central canal narrowing. Mild neuroforaminal narrowing on the l eft at C3-4 and C4-5 due to uncinate hypertrophy. Paraspinal soft tissues: Unremarkable. CT chest/abdomen/pelvis: Lungs and pleura: Minimal atelectasis in the left lower lobe. No pulmonary consolidation/contusion. N o pleural effusion. No pneumothorax. Mediastinum and neck: No mediastinal lymphadenopathy identified by CT size criteria. Subcentimeter ri ght thyroid hypodensity (no follow-up imaging is recommended). Cardiac: Mild left atrial enlargement. No pericardial effusion. No thoracic aortic aneurysm or dissec tion. Mild atherosclerosis. Hepatobiliary: Few small hepatic hypodensities, possibly cysts. No concerning hepatic lesion identifi ed. The hepatic and portal veins are patent. The gallbladder is unremarkable. No biliary ductal dilat ation. Pancreas: Unremarkable. Spleen: Unremarkable. Gastrointestinal: No evidence of bowel obstruction or perienteric inflammation. The appendix is nonvi sualized, but there are no pericecal inflammatory changes. No obvious bowel wall thickening/hematoma formation. Adrenals: No abnormality identified in either adrenal gland. Renal: Trace bilateral perinephric fat stranding. No concerning parenchymal abnormality in either kid ilana. No hydronephrosis or urolithiasis. Bladder/Reproductive: Unremarkable appearance of the urinary bladder by CT technique. Moderate prosta tomegaly. Vascular/Lymphatics: No lymphadenopathy identified by CT size criteria. Abdominal aorta is normal in caliber. The major visceral vessels are patent. Mild atherosclerosis. Musculoskeletal: Acute nondisplaced left posterior ninth rib fracture. Minimal surrounding soft tissu e thickening. Multilevel chronic healed left-sided rib fractures. Right inguinal surgical clips. Spin al degenerative changes. Chronic bilateral pars interarticularis defects at L5, with grade 1 anteroli sthesis at L5-S1. Fluid / peritoneum: No significant free fluid. No free intraperitoneal air identified. IMPRESSION: 1. No acute intracranial abnormality identified. 2. No acute osseous abnormality identified in the cervical spine. 3. Acute nondisplaced left posterior ninth rib fracture. No pneumothorax or pulmonary contusion. 4. No additional acute traumatic abnormality identified in the chest, abdomen, or pelvis. Electronically signed by: Haily Pugh MD 09/17/2020 10:20 PM CDT Due to temporary technical issues with the PACS/Fluency reporting system, reports are being signed by the in house radiologists without review as a courtesy to insure prompt reporting. The interpreting radiologist is fully responsible for the content of the report.
[2020-09-18 20:44] LABS: Urine Appearance CLEAR (Clear); Urine Bilirubin NEGATIVE (Negative); Urine Blood NEGATIVE (Negative); Urine Color YELLOW (Yellow); Urine Glucose NEGATIVE (Negative); Urine Protein NEGATIVE (Negative); Urine Specific Gravity 1.015 (1.005-1.030); Urine Urobilinogen 0.2 mg/dL (0.2-1.0); Urine pH 5.5 (5.0-7.0)
[2020-09-18 20:45] LABS: Urine Microscopic Reflex NO UMIC
[2020-09-19 04:32] LABS: BUN Blood Urea Nitrogen 10 mg/dL (7-18); Bicarbonate 31 mmol/L (21-32); Glucose Level 118 mg/dL (74-106); Potassium 4.6 mmol/L (3.5-5.1); Sodium Level 142 mmol/L (136-145)
[2020-09-19] MEDS: HYDROCODONE/APAP 10/325 TAB PO PRN ×2 (04:35→10:32)
--- NOTE | 2020-09-19 05:34 | CON ---
Date of Consultation: 09/18/2020 Reason For Consultation: Syncope. History Of Present Illness: Mr. Marroquin is a 75-year-old white male. He is known to us from the off ice. He recently had a positive stress test. Has chronic atrial fibrillation for which he takes ami odarone and metoprolol. Came in with a syncopal episode. Heart rate in the hospital was in the 60s. He denied any chest pain, nausea, vomiting, diaphoresis, PND, orthopnea, pedal edema, or palpitatio n. Denied any fever or chills. By the time I saw him, he basically had a hemoglobin of 9.9. His re st of blood work was fairly unremarkable except for slightly elevated BNP is 1354. CT has been ruled out. Allergies: TO BEE VENOM. Review of Systems: Negative. Social History: Negative. Family History: Noncontributory. Medications: At home include Eliquis, inhalers, metoprolol, trazodone, sertraline, valacyclovir, Víctor rax, and amiodarone. Physical Examination: Vital signs: Stable afebrile. Chronic atrial fibrillation, rate of 67. O2 room air was 97%. HEENT: Negative. Neck: Supple. No bruit, lymphadenopathy, JVD, or thyromegaly. Chest: Clear to auscultation and percussion. Cardiac: Revealed atrial fibrillation. No murmurs, gallops, or rubs. Abdomen: Benign. Extremities: Revealed no clubbing, cyanosis, or edema. Diagnostic Data: As stated earlier. Chest x-ray was negative. EKG showed atrial fibrillation. He had a head, cervical spine, chest, abdominal and pelvis CT scan that showed a left posterior ninth ri b fracture, otherwise was negative. Impression And Plan: 1.Atrial fibrillation with syncope, probably secondary to a combination of amiodarone and metoprolol . 2.Dyslipidemia. 3.Spinal stenosis. I think we need to take him off both metoprolol and amiodarone at this point and see what he does as far as atrial fibrillation is concerned. He had a recent stress test and he nehal l need a catheterization later. However, we need to do a carotid Doppler first and an echocardiogram first and both of those are pending in my office. I would watch him overnight off metoprolol and am iodarone, send him home and I will make sure he follows up in the office in the near future for his o ther testing. ISAMAR/JS Voice ID: [id number] Report ID: [id number]
[2020-09-19 08:23] VITALS: BP 166/82; TEMP 96.9
[2020-09-19] MEDS: GABAPENTIN 300 MG CAP PO SCH (08:53)
[2020-09-19 08:54] VITALS: O2SAT 93
--- NOTE | 2020-09-19 09:18 | P.DS ---
Discharge Date: 09/19/20 Disposition: ROUTINE DISCHARGE Discharge Condition: GOOD Reason for Admission: presyncope Consultations: Cardiology Brief History of Present Illness: Patient is a 75-year-old gentleman who 7 episodes of lightheadedness. He said he starts feeling lightheaded and almost passes out. He came into the emergency room for further evaluation. In the emergency room his workup was unremarkable. He had a few episodes of Con arrhythmia but these were stabilize. Spoke with Cardiology and the plan is to hold off on his amiodarone and Lopressor. Hospital Course: Patient has done well during hospital stay. No arrhythmia on telemetry. He did replicate an episode were he became bradycardic. He started feeling the same way. Hopefully once the amiodarone and Lopressor get out of his system this will not happen. Concern for him having tachyarrhythmia and he needs to follow with Cardiology for possible event monitor placement. At this time patient is stable for discharge per Cardiology. Outpatient follow-up. Vital Signs/Physical Exam: Temp Pulse Resp BP Pulse Ox 96.9 F 64 16 166/82 H 96 09/19/20 08:00 09/19/20 08:00 09/19/20 08:00 09/19/20 08:00 09/19/20 08:00 General: Alert, In no apparent distress, Oriented x3 Laboratory Data at Discharge: WBC 7.20 K/uL (4.3-10.9) D 09/18/20 04:57 Hgb 9.9 g/dL (13.6-17.9) L 09/18/20 04:57 Hct 31.0 % (39.6-49.0) L 09/18/20 04:57 Plt Count 247 K/uL (152-406) 09/18/20 04:57 PT 13.0 SECONDS (9.5-12.5) H 09/17/20 20:10 INR 1.13 09/17/20 20:10 Sodium 142 mmol/L (136-145) 09/19/20 03:00 Potassium 4.6 mmol/L (3.5-5.1) 09/19/20 03:00 BUN 10 mg/dL (7-18) 09/19/20 03:00 Creatinine 0.69 mg/dL (0.55-1.3) 09/19/20 03:00 Glucose 118 mg/dL (74-106) H 09/19/20 03:00 Phosphorus 3.7 mg/dL (2.5-4.9) 09/18/20 04:57 Magnesium 2.1 mg/dL (1.8-2.4) 09/18/20 04:57 Total Bilirubin 0.4 mg/dL (0.2-1.0) 09/18/20 04:57 AST 12 U/L (15-37) L 09/18/20 04:57 ALT 17 U/L (12-78) 09/18/20 04:57 Alkaline Phosphatase 66 U/L (45-117) 09/18/20 04:57 Troponin I 0.02 ng/mL (0.0-0.045) 09/18/20 16:34 Triglycerides 100 mg/dL (<150) 09/18/20 04:57 Cholesterol 159 mg/dL (<200) 09/18/20 04:57 HDL Cholesterol 73 mg/dL (40-60) H 09/18/20 04:57 Cholesterol/HDL Ratio 2.18 09/18/20 04:57 Home Medications: Albuterol Sulfate [Proair Hfa] 8.5 gm IH Q4HP PRN 09/18/20 Budesonide/Formoterol Fumarate [Symbicort 160-4.5 Mcg Inhaler] 2 puff IH BID 09/18/20 Hydrocodone Bit/Acetaminophen [Hydrocodon-Acetaminophn 10-325] 1 each PO Q6HP PRN 09/18/20 Lurasidone HCl [Latuda] 20 mg PO DAILY 09/18/20 Prednisolone Acetate/Pf [Prednisolone Acet 1% Eye Drop] 1 drop RIGHT EYE BID 09/18/20 Sertraline HCl 200 mg PO DAILY 09/18/20 Trazodone HCl 50 mg PO Q6HP PRN 09/18/20 Valacyclovir HCl [Valacyclovir] 100 mg PO TID 09/18/20 hydrOXYzine HCL [Atarax*] 25 mg PO BID PRN 09/18/20 Trazodone [Desyrel*] 50 mg PO BEDTIME PRN PRN #10 tablet 09/19/20 New Medications: Trazodone [Desyrel*] 50 mg PO BEDTIME PRN PRN #10 tablet PRN Reason: Insomnia Physician Discharge Instructions: OK TO DC IV AND DC HOME FOLLOW-UP WITH PRIMARY CARE PROVIDER IN 1-2 WEEKS FOLLOW-UP WITH CARDIOLOGY IN 1-2 WEEKS RETURN TO THE ER IF symptoms worsen CALL or TEXT DR. YORK AT [phone] IF ANY QUESTIONS REGARDING HOSPITAL STAY. PLEASE CALL THE FLOOR AT [phone] IF ANY MEDICATION OR NURSING QUESTIONS. Diet: AHA Activity: Fall precautions Followup: NONE,NONE [Primary Care Provider] - Time spent managing pt's care (in minutes): 35
[2020-09-19] MEDS ORDERED: CYANOCOBALAMIN 1000MCG/ML INJ IM ONE (09:24)
[2020-09-19] MEDS ORDERED: HYDROCODONE/APAP 10/325 TAB PO PRN (09:27)
[2020-09-19] MEDS ORDERED: hydrOXYzine HCL 25 MG TAB PO PRN (09:27)
[2020-09-19] MEDS ORDERED: ALBUTEROL INHALER 60 PUFF/8 GM IH PRN (09:27)
--- NOTE | 2020-09-19 10:01 | PN ---
Date of Progress Note: 09/19/2020 Mr. Marroquin came in with syncope that I thought secondary to slow atrial fibrillation because of amio darone and metoprolol combination. He had a negative workup so far including chest x-ray, CT of his head, troponin, EKG showed chronic atrial fibrillation, off amiodarone and off metoprolol. He is sti ll only running a heart rate of 73. He has a recent positive stress test. 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 He needs a heart catheterization, but I need to have him to do an echocardiogram and a ca rotid Doppler, which will be done in the office soon and I will see him after that. As far as I am c oncerned, he can go home whenever it is okay with Dr. Dangelo. ISAMAR/JS Voice ID: [id number] Report ID: [id number]
[2020-09-19] MEDS ORDERED: VALACYCLOVIR 500 MG TAB PO SCH (14:00)
--- NOTE | 2020-09-19 14:51 | CON ---
Date of Consultation: 09/18/2020 Brief History Of Present Illness: The patient is a 75-year-old male with history of atrial fibrillat ion, COPD, hypertension, on blood thinners specifically, who presents to the hospital after an episod e of dizziness since presyncope had been happening off and on for approximately a year, being getting progressively worse. He smoke a cigarette, became dizzy, shortness of breath, and fell. He did not lose consciousness, but fell down onto his back, on the left buttock area and onto his foot. He had some mild pain associated with the area and had bruising over his left buttock extending down his le g to his foot area as well. He currently feels no pain at this point. Past Medical History: Atrial fibrillation, arthritis, spinal stenosis, COPD, right corneal ulcer. Past Surgical History: Includes hernia repair x4, rotator cuff repair, bilateral knee replacement, a right leg aneurysm repair. Family History: Significant for heart disease in the father and seizures. Mother had seizure disord er as well. Social History: He smokes cigarettes. He drinks alcohol recreationally. Denies any recreational dr ug use. Allergies: TO BEE VENOM. Review of Systems: Ten-point review of systems other than HPI, denies. Physical Examination: Vital Signs: At the time of my examination; his temperature 96.4, blood pressure 129/74, pulse 75, r espiratory rate 18, pulse ox 97% on room air. General: He is awake, alert, oriented. Psychiatric: Appropriate, conversive. HEENT: He is normocephalic. Sclerae anicteric. Mucous membranes are moist. Oropharynx is clear. Neck: Supple without JVD. Chest: Normal expansion and excursion. Cardiovascular: Regular rate and rhythm. Pulmonary: Clear to auscultation bilaterally. Abdomen: Soft, nontender, nondistended. Extremities: Focused examination of the back and extremities; he has bruising and ecchymosis extendi ng from his left buttock to the lower back area all the way down to his foot, although it is most pre dominantly over the buttock area and over the dorsal aspect of the left foot. No sensorineural defic its. Capillary refill is good. There is no compartment concern. No drainable fluid collections. Skin: Warm and dry otherwise. Laboratory Data: He had laboratory exam, revealed a white blood cell count of 7.2, hemoglobin is 9.9 , hematocrit 39.1, platelet count is 247. His neutrophils were 65%. His sodium 142, potassium 3.9, chloride 108, carbon dioxide 28, BUN 12, creatinine is 0.64. His glucose is 122. His urinalysis was essentially negative. He had imaging performed, which included a CT traumagram on 09/17 including c hest, abdomen, cervical spine, abdomen, and pelvis. Impression is no acute intracranial abnormality, no acute osseus abnormality involving the cervical spine, acute nondisplaced left posterior 9th rib fracture. No pneumothorax or pulmonary contusion. No additional acute traumatic injury identified i n the chest, abdomen, or pelvis. Assessment And Plan: This is a 75-year-old male, who sustained a fall with a rib fracture as describ ed above and bruising to the left buttock area and lower extremity. 1.Gentle wraps to the left lower extremity. 2.Hold anticoagulation for 48 hours and then may resume. 3.Serial exams. 4.Continue medical management per primary team. 5.The patient can follow up with me whenever he is discharged as an outpatient to ensure no collecti ons recur and there is no need for any drainage of any procedures as there is none currently. I have explained the signs and symptoms to the patient to be looking for upon his discharge. 6.Continue incentive spirometry and take Tylenol [id number] for pain control. If this is not adequate for his rib fracture, he should follow up with me as an outpatient and we can address this at that time. The patient agrees to proceed as indicated. Thank you for this interesting consult. AKUA/JS Voice ID: [id number] Report ID: [id number]
[2020-09-19] MEDS ORDERED: DULERA 200/5 (MOMETASONE/FORMOTEROL) INHALER IH SCH (21:00)
[2020-09-19] MEDS ORDERED: PREDNISOLONE 1% OPTH SOLN 5ML RIGHT EYE SCH (21:00)
[2020-09-20] MEDS ORDERED: CYANOCOBALAMIN 1,000 MCG TAB SL SCH (09:00)
[2020-09-20] MEDS ORDERED: HOME MED 1 EA UNK (Lurasidone Hcl [Latuda] 20 MG Tablet) PO SCH (09:00)
[2020-09-20] MEDS ORDERED: SERTRALINE HCL 100 MG TAB PO SCH (09:00)
== END 2020-09-19 10:43 | disposition home or self-care (01) | DRG 309 ==
LOC: ER 16:32 → ERHOLD 22:47 → 4TH 09-18 00:29 → OBSVTOIN 09-18 07:34
PROVIDERS: ADMIT Hospitalist; ATTEND Hospitalist
DX: I48.20 Chronic atrial fibrillation, unspecified (principal); S22.32XA Fracture of one rib, left side, initial encounter for closed fracture; I49.8 Other specified cardiac arrhythmias; I10 Essential (primary) hypertension; J44.9 Chronic obstructive pulmonary disease, unspecified; E78.5 Hyperlipidemia, unspecified; M48.00 Spinal stenosis, site unspecified; F17.210 Nicotine dependence, cigarettes, uncomplicated; S30.0XXA Contusion of lower back and pelvis, initial encounter; R55 Syncope and collapse; T46.2X5A Adverse effect of other antidysrhythmic drugs, initial encounter; W01.0XXA Fall on same level from slipping, tripping and stumbling without subsequent striking against object, initial encounter; Z79.82 Long term (current) use of aspirin; Z79.01 Long term (current) use of anticoagulants; Z91.030 Bee allergy status; Z96.653 Presence of artificial knee joint, bilateral; Z79.899 Other long term (current) drug therapy; Z20.822 Contact with and (suspected) exposure to COVID-19
CPT/HCPCS: 36415; 70450; 71045; 71260; 72125; 74177; 80048; 80053; 80061; 80076; 81003; 82607; 82728; 82746; 83540; 83735; 83880; 84100; 84439; 84443; 84466; 84484; 85025; 85610; 93005; 94760; 99284; G0378; J3420; J7606; Q9967; U0003

== ENCOUNTER 2020-10-03 07:41 | Day surgery (SDC) | payer OTHER ==
[2020-10-01 14:51] LABS: Absolute Lymphocytes (CBC) 1.5 K/uL (0.7-4.9); Basophils % 0.5 % (0-1.3); Hematocrit 35.3 % (39.6-49.0); MPV 7.7 fL (7.6-11.3); RBC Red Blood Cell Count 3.93 M/uL (4.33-5.43)
[2020-10-01 15:01] LABS: BUN Blood Urea Nitrogen 12 mg/dL (7-18); Bicarbonate 31 mmol/L (21-32); Glucose Level 103 mg/dL (74-106); Potassium 4.7 mmol/L (3.5-5.1); Sodium Level 141 mmol/L (136-145)
[2020-10-01 15:03] LABS: Protime INR 1.04
[2020-10-03] MEDS ORDERED: LIDOCAINE 1% 20 ML MDV ONE (07:55)
[2020-10-03] MEDS ORDERED: HEPA 1000U/500MLS 1,000 UNIT/500 ML BAG IV ONE (07:55)
[2020-10-03] MEDS ORDERED: NA CHLORIDE 0.9% 500 ML ONE (08:10)
[2020-10-03] MEDS ORDERED: FENTANYL CITR 100 MCG/2 ML ONE (08:48)
[2020-10-03] MEDS ORDERED: NA CHLORIDE 0.9% 0 ML ONE (08:48)
[2020-10-03] MEDS ORDERED: MIDAZOLAM HCL 2 MG/2 ML INJ ONE (08:48)
[2020-10-03] MEDS ORDERED: ATROPINE SULF 1 MG/10 ML SYR IV ONE (08:48)
[2020-10-03 10:17] VITALS: TEMP 96.8
--- NOTE | 2020-10-03 10:18 | OP ---
Surgeon: Lee Foreman MD Delivery Rep: Mr. Adithya Damon. Procedure Performed: Admitted on 10/03/2020 for a heart catheterization and selective coronary arter iogram. Indication: Abnormal stress test. History Of Present Illness And Procedure In Detail: Mr. Marroquin is 75. He has a history of anxiety, COPD, hypertension, chronic atrial fibrillation, abnormal stress test, scheduled today for heart cat heterization. 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 He was only given 1 mg of Versed and 25 of fentanyl for sedation. He was prepped an d draped in routine sterile fashion. A 6-Chadian sheath was introduced in the right common femoral ar osiris successfully. Angiography there was normal. Attempt to Angio-Seal him was unsuccessful seconda ry to local groin pain, so hand pressure was used for hemostasis. The catheterization was done using Chase catheter left and right. It was a very difficult heart catheterization, was very tortuous c ommon iliac and common femoral artery. We had to use a long Wholey exchange wire. The catheter edwin ulated the left main and right main successfully. His RCA was normal. He was right dominant. His c ircumflex had a 50% stenosis in the OM. The left main was normal. Lad was normal. There were no co mplications. Blood Loss: 5 mL. Postoperative Diagnosis: Mild coronary artery disease. Plan: To continue medical therapy. I would like him to be on a statin in addition to his medication and also like him to restart his Eliquis tomorrow. Anesthesia: Total conscious sedation was 45 minutes. ISAMAR/JS Voice ID: [id number] Report ID: [id number]
[2020-10-03] MEDS ORDERED: LORAZEPAM 0.5 MG TABLET PO ONE (13:35)
[2020-10-03 15:47] VITALS: O2SAT 97
[2020-10-03 15:49] VITALS: BP 140/79
== END 2020-10-03 15:18 | disposition home or self-care (01) ==
LOC: CCL 07:41
DX: I25.10 Atherosclerotic heart disease of native coronary artery without angina pectoris (principal); I48.21 Permanent atrial fibrillation; I10 Essential (primary) hypertension; I49.3 Ventricular premature depolarization; R55 Syncope and collapse; I72.4 Aneurysm of artery of lower extremity; J44.1 Chronic obstructive pulmonary disease with (acute) exacerbation; F41.1 Generalized anxiety disorder; E66.9 Obesity, unspecified; Z68.33 Body mass index [BMI] 33.0-33.9, adult
CPT/HCPCS: 85025; 80048; 36415; 85610; 85730; 93454; C1893; J2250; J3010; J7040; J1644; J0583

== ENCOUNTER 2020-12-27 17:15 | Emergency (ER) | payer OTHER ==
--- OUTSIDE RECORDS SUMMARY | 2020-12-27 17:20 | XMS REPORT | Continuity of Care Document ---
:1945 Author Organization [facility] t Address [address] [place] [address] Care Team Providers Name Role Phone HEMATPOUR Attending Clinician Unavailable Hematpour Attending Clinician VISIT, [facility] Attending Clinician Unavailable Lexie LONDON Attending Clinician Payers Payer Name Policy Type Policy Number Effective Date Expiration Date S ource [employer] MEDICARE [id number] 2020 ADVANTAGE HMO 00:00:00 Problems Condition Condition Condition Status Onset Resolution Last Treating Co mments Source Name Details Category Date Date Treatment Clinician Date PREADMIT / Diagnosis Active 2020-12-16 Memoria WATCHMAN / 12-11 08:31:00 l GA / JUAN PREADMIT 00:00: Herm zackary SAME DAY / WATCHMAN 00 / GA / JUAN SAME DAY Active 12/11/2020 [facility] CCL / EPS Diagnosis Active 2020-12-17 Memoria PVI 11-29 11:41:00 l ABLATION CCL / 00:00: Royce W/ JOANIE / EPS PVI 00 GA / JUAN ABLATION W/ JOANIE / GA / JUAN Active 11/29/2020 [facility] Unspecifie Unspecifie Problem Active C [facility] [...] specific specific [facility]ropath arthropath Me hanley ies, not ies, not l elsewhere elsewhere Outp ati classified classified en t , left , left Clinics shoulder shoulder Allergies, Adverse Reactions, Alerts This patient has no known allergies or adverse reactions. Social History Social Habit Start Date Stop Date Quantity Comments Source Social History 2020-12-13 2020-12-13 [facility] 11:33:32 11:33:32 Medications Ordered Filled Start Stop Current Ordering Indication Dosage Frequency Signature Comments Components Source Medication Medication Date Date Medication? Clinician (SIG) Name Name pantoprazol Yes 40 mg, 1 Me moria e 8-14 tab, l 14:00: Route: PO, [place] 00 Drug form: ECTAB, Daily, Dosing Weight 109.091, kg, Start date: 12/14/20 9:00:00 CDT, Duration: 14 day, Stop date: 12/27/20 9:00:00 CDT, 0 pantoprazol 2020-0 No 40 mg, 1 Me moria e 8-14 tab, l 14:00: Route: PO, [place] 00 Drug form: ECTAB, Daily, Dosing Weight 109.091, kg, Start date: 12/14/20 9:00:00 CDT, Duration: 14 day, Stop date: 12/27/20 9:00:00 CDT, 0 pantoprazol 2020-0 No 40 mg, 1 Me moria e 8-14 tab, l 14:00: Route: PO, [place] 00 Drug form: ECTAB, Daily, Dosing Weight 109.091, kg, Start date: 12/14/20 9:00:00 CDT, Duration: 14 day, Stop date: 12/27/20 9:00:00 CDT, 0 Saline 2020-0 Yes Notes: Memoria Flush 0.9% 8-14 Same as: l 02:00: BD Posiflush Sterile Sucralfate No Notes: August emoria 8-14 interfere l 02:00: w/enteral [place] 00 feeds - Take 1 hr before or 2 hr after antacids, dairy pdt, meals & minerals - On empty stomach. Saline No Notes: Memoria Flush 0.9% 8-14 Same as: l 02:00: BD [place] Posiflush Sterile gabapentin No Notes: Memor ia 300 MG Oral 8-14 (Same as: l Capsule 02:00: Neurontin) Herm zackary gabapentin Yes Notes: Memor ia 300 MG Oral 8-14 (Same as: l Capsule 02:00: Neurontin) Herm zackary apixaban Yes Notes: Memoria 8-14 Same as: l 02:00: Eliquis [place] Sucralfate Yes Notes: August M emoria 8-14 interfere l 02:00: w/enteral [place] 00 feeds - Take 1 hr before or 2 hr after antacids, dairy pdt, meals & minerals - On empty stomach. apixaban No Notes: Memoria 8-14 Same as: l 02:00: Eliquis [place] Sucralfate No Notes: August emoria 8-14 interfere l 02:00: w/enteral [place] 00 feeds - Take 1 hr before or 2 hr after antacids, dairy pdt, meals & minerals - On empty stomach. Saline No Notes: Memoria Flush 0.9% 8-14 Same as: l 02:00: BD [place] Posiflush Sterile gabapentin No Notes: Memor ia 300 MG Oral 8-14 (Same as: l Capsule 02:00: Neurontin) Herm zackary apixaban No Notes: Memoria 8-14 Same as: l 02:00: Eliquis [place] Pulmicort No Notes: Memori a Respules 8-14 (Same As: l 01:00: Pulmicort) [place] Symbicort No Notes: Memori a 160/4.5 8-14 (Same as: l inhalation 01:00: Symbicort) H ermann aerosol 00 WASTE: with Aerosol - adapter Return to Pharmacy Pulmicort No Notes: Memori a Respules 8-14 (Same As: l 01:00: Pulmicort) [place] Symbicort Yes Notes: Memori a 160/4.5 8-14 (Same as: l inhalation 01:00: Symbicort) H ermann aerosol 00 WASTE: with Aerosol - adapter Return to Pharmacy Pulmicort No Notes: Memori a Respules 8-14 (Same As: l 01:00: Pulmicort) [place] 00 Symbicort No Notes: Memori a 160/4.5 8-14 (Same as: l inhalation 01:00: Symbicort) H ermann aerosol 00 WASTE: with Aerosol - adapter Return to Pharmacy phenol No Notes: Memoria 8-13 Chlorasept l 22:56: ic [place] 00 (Same as: Chlorasept ic, Sore Throat [place]) WASTE: F/P - Black; E - [facility] phenol Yes Notes: Memoria 8- Chlorasept l 22:56: ic [place] 00 (Same as: Chlorasept ic, Sore Throat [place]) WASTE: F/P - Black; E - [facility] Trash [facility] phenol No Notes: Memoria 8- Chlorasept l 22:56: ic [place] (Same as: Chlorasept ic, Sore Throat [place]) WASTE: F/P - Black; E - Municipal Trash [facility] Symbicort No 2 puff, Memor ia 160/4.5 8 Route: l inhalation 22:00: INHALER, Her hennessy aerosol 00 Drug Form: with AERO/A, adapter Dosing Weight 109.091, kg, BID, Start date: 12/13/20 17:00:00 CDT, Duration: 30 day, Stop date: 01/12/21 9:00:00 CDT prednisolon No Notes: Martín ana m e acetate 813 (Same as: l 10 MG/ML 22:00: Pred [place] Ophthalmic 00 Forte, Suspension Econopred Plus) Symbicort No 2 puff, Memor ia 160/4.5 813 Route: l inhalation 22:00: INHALER, Her hennessy aerosol 00 Drug Form: with AERO/A, adapter Dosing Weight 109.091, kg, BID, Start date: 12/13/20 17:00:00 CDT, Duration: 30 day, Stop date: 01/12/21 9:00:00 CDT prednisolon Yes Notes: Martín ana m e acetate 8-13 (Same as: l 10 MG/ML 22:00: Pred [place] Ophthalmic 00 Forte, Suspension Econopred Plus) Symbicort No 2 puff, Memor ia 160/4.5 12-13 Route: l inhalation 22:00: INHALER, Her hennessy aerosol Drug Form: with AERO/A, adapter Dosing Weight 109.091, kg, BID, Start date: 12/13/20 17:00:00 CDT, Duration: 30 day, Stop date: 01/12/21 9:00:00 CDT prednisolon No Notes: Martín ana m e acetate 8-13 (Same as: l 10 MG/ML 22:00: Pred [place] Ophthalmic 00 Forte, Suspension Econopred Plus) Morphine No 2 mg, Memoria 8 Route: l 20:11: IVP, ONCE, Dosing Weight 109.091, kg, Start date: 12/13/20 15:11:00 CDT, Stop date: 12/13/20 15:11:00 CDT Morphine 0 No 2 mg, Memoria 12-13 Route: l 20:11: IVP, ONCE, Dosing Weight 109.091, kg, Start date: 12/13/20 15:11:00 CDT, Stop date: 12/13/20 15:11:00 CDT Morphine 2020-0 No 2 mg, Memoria 8 Route: l 20:11: IVP, ONCE, Dosing Weight 109.091, kg, Start date: 12/13/20 15:11:00 CDT, Stop date: 12/13/20 15:11:00 CDT albuterol No Notes: SEE Me moria 8-13 RT l 20:00: DOCUMENTAT ION (Same as: Proventil) albuterol No Notes: SEE Me moria 8-13 RT l 20:00: DOCUMENTAT ION (Same as: Proventil) albuterol No Notes: SEE Me moria 8-13 RT l 20:00: DOCUMENTAT ION (Same as: Proventil) valacyclovi No Notes: Martín ana m r 8-13 (Same As: l 19:00: Valtrex) valacyclovi Yes Notes: Martín ana m r 8-13 (Same As: l 19:00: Valtrex) valacyclovi No Notes: Martín ana m r 8-13 (Same As: l 19:00: Valtrex) pantoprazol Yes 40 mg = 1 M emoria e 40 mg 8-13 tab, PO, l oral 16:25: Daily, # [place] enteric 00 30 tab, 0 coated Refill(s), tablet Pharmacy: [facility] STORE #[id number], 180.34, cm, 12/09/20 10:54:00 CDT, Height, 109.091, kg, 12/09/20 10:54:00 CDT, Weight sucralfate Yes 1 gm = 1 Mem oria 1 g oral 8-13 tab, PO, l tablet 16:25: Q12H, # 28 Ailin nn 00 tab, 0 Refill(s), Pharmacy: [facility] STORE #[id number], 180.34, cm, 12/09/20 10:54:00 CDT, Height, 109.091, kg, 12/09/20 10:54:00 CDT, Weight pantoprazol Yes 40 mg = 1 M emoria e 40 mg 8-13 tab, PO, l oral 16:25: Daily, # [place] enteric 00 30 tab, 0 coated Refill(s), tablet [id number], 180.34, cm, 12/09/20 10:54:00 CDT, Height, 109.091, kg, 12/09/20 10:54:00 CDT, Weight sucralfate Yes 1 gm = 1 Mem oria 1 g oral 8-13 tab, PO, l tablet 16:25: Q12H, # 28 Ailin nn 00 tab, 0 Refill(s), [id number], 180.34, cm, 12/09/20 10:54:00 CDT, Height, 109.091, kg, 12/09/20 10:54:00 CDT, Weight pantoprazol Yes 40 mg = 1 M emoria e 40 mg 8-13 tab, PO, l oral 16:25: Daily, # [place] enteric 00 30 tab, 0 coated Refill(s), tablet Pharmacy: [facility] STORE #[id number], 180.34, cm, 12/09/20 10:54:00 CDT, Height, 109.091, kg, 12/09/20 10:54:00 CDT, Weight sucralfate Yes 1 gm = 1 Mem oria 1 g oral 8-13 tab, PO, l tablet 16:25: Q12H, # 28 Ailin nn 00 tab, 0 Refill(s), Pharmacy: [facility] STORE #[id number], 180.34, cm, 12/09/20 10:54:00 CDT, Height, 109.091, kg, 12/09/20 10:54:00 CDT, Weight Trazodone No Notes: Memori a Hydrochlori 8-13 (Same As: l de 100 MG 16:24: Desyrel) Herm zackary Oral Tablet 00 Trazodone Yes Notes: Memori a Hydrochlori 8-13 (Same As: l de 100 MG 16:24: Desyrel) Herm zackary Oral Tablet 00 Trazodone No Notes: Memori a Hydrochlori 8-13 (Same As: l de 100 MG 16:24: Desyrel) Herm zackary Oral Tablet 00 acetaminoph No Notes: Do M emoria en-codeine 8-13 not exceed l #3 16:20: 4gm/day of [place]ce 00 acetaminop hen. (Same as: Tylenol with Codeine # 3) Saline No Notes: Memoria Flush 0.9% 8-13 Same as: l 16:20: BD [place] 00 Posiflush Sterile acetaminoph Yes Notes: Do M emoria en-codeine 8-13 not exceed l #3 16:20: 4gm/day of [place] 00 acetaminop hen. (Same as: Tylenol with Codeine # 3) Saline Yes Notes: Memoria Flush 0.9% 8-13 Same as: l 16:20: BD Posiflush Sterile acetaminoph No Notes: Do M emoria en-codeine 8-13 not exceed l #3 16:20: 4gm/day of acetaminop hen. (Same as: Tylenol with Codeine # 3) Saline No Notes: Memoria Flush 0.9% 8-13 Same as: l 16:20: BD Posiflush Sterile glycopyrrol No Route: IV, Memoria ate (ANES) 8- Drug form: l 16:12: INJ, ONCE, Stop date: 12/13/20 11:12:00 CDT neostigmine No Route: IV, Memoria (ANES) 8- Drug form: l 16:12: INJ, ONCE, Stop date: 12/13/20 11:12:00 CDT ondansetron No Route: IV, Memoria (ANES) 8- Drug form: l 16:12: INJ, ONCE, Stop date: 12/13/20 11:12:00 CDT glycopyrrol No Route: IV, Memoria ate (ANES) 8- Drug form: l 16:12: INJ, ONCE, Stop date: 12/13/20 11:12:00 CDT neostigmine No Route: IV, Memoria (ANES) 8-13 Drug form: l 16:12: INJ, ONCE, Stop date: 12/13/20 11:12:00 CDT ondansetron No Route: IV, Memoria (ANES) 8-13 Drug form: l 16:12: INJ, ONCE, Stop date: 12/13/20 11:12:00 CDT glycopyrrol No Route: IV, Memoria ate (ANES) 8- Drug form: l 16:12: INJ, ONCE, Stop date: 12/13/20 11:12:00 CDT neostigmine No Route: IV, Memoria (ANES) 8-13 Drug form: l 16:12: INJ, ONCE, Stop date: 12/13/20 11:12:00 CDT ondansetron 2020-0 No Route: IV, Memoria (ANES) 8-13 Drug form: l 16:12: INJ, ONCE, [place] 00 Stop date: 12/13/20 11:12:00 CDT protamine 2020-0 No Route: IV, Me moria (ANES) 8-13 Drug form: l 16:09: INJ, ONCE, [place] 00 Stop date: 12/13/20 11:09:00 CDT protamine 2020-0 No Route: IV, Me moria (ANES) 8-13 Drug form: l 16:09: INJ, ONCE, Stop date: 12/13/20 11:09:00 CDT protamine 2020-0 No Route: IV, Me moria (ANES) 8-13 Drug form: l 16:09: INJ, ONCE, Stop date: 12/13/20 11:09:00 CDT Isuprel HCl 0 No Route: IV, Memoria (ANES) 1 mg 8-13 Drug form: l + Sodium 15:22: INJ, [place] Chloride 00 Dosing 0.9% IV Weight (ANES) 250 109.1, kg, mL Start date: 12/13/20 10:22:00 CDT, Stop date: 12/13/20 11:22:00 CDT Isuprel HCl 2020-0 No Route: IV, Memoria (ANES) 1 mg 8-13 Drug form: l + Sodium 15:22: INJ, [place] Chloride 00 Dosing 0.9% IV Weight (ANES) 250 109.1, kg, mL Start date: 12/13/20 10:22:00 CDT, Stop date: 12/13/20 11:22:00 CDT Isuprel HCl 2020-0 No Route: IV, Memoria (ANES) 1 mg 8-13 Drug form: l + Sodium 15:22: INJ, [place] Chloride 00 Dosing 0.9% IV Weight (ANES) 250 109.1, kg, mL Start date: 12/13/20 10:22:00 CDT, Stop date: 12/13/20 11:22:00 CDT heparin 2020-0 No Route: IV, Martín ana m (ANES) 8 Drug form: l 14:22: INJ, ONCE, Stop date: 12/13/20 9:22:00 CDT heparin 2020-0 No Route: IV, Martín ana m (ANES) 8 Drug form: l 14:22: INJ, ONCE, Stop date: 12/13/20 9:22:00 CDT heparin 2020-0 No Route: IV, Martín ana m (ANES) 8 Drug form: l 14:22: INJ, ONCE, Stop date: 12/13/20 9:22:00 CDT fentaNYL 2020-0 No Route: IV, Mem oria (ANES) 8 Drug form: l 14:02: INJ, ONCE, Stop date: 12/13/20 9:02:00 CDT propofol 2020-0 No Route: IV, Mem oria (ANES) 12-13 Drug form: l 14:02: INJ, ONCE, Stop date: 12/13/20 9:02:00 CDT rocuronium 2020-0 No Route: IV, M emoria (ANES) 8 Drug form: l 14:02: INJ, ONCE, Stop date: 12/13/20 9:02:00 CDT lidocaine 2020-0 No Route: IV, Me moria (ANES) 12-13 Drug form: l 14:02: INJ, ONCE, Stop date: 12/13/20 9:02:00 CDT fentaNYL 2020-0 No Route: IV, Mem oria (ANES) 8 Drug form: l 14:02: INJ, ONCE, Stop date: 12/13/20 9:02:00 CDT propofol 2020-0 No Route: IV, Mem oria (ANES) 8- Drug form: l 14:02: INJ, ONCE, Stop date: 12/13/20 9:02:00 CDT rocuronium 2020-0 No Route: IV, M emoria (ANES) 8- Drug form: l 14:02: INJ, ONCE, Stop date: 12/13/20 9:02:00 CDT lidocaine 2020-0 No Route: IV, Me moria (ANES) 8-13 Drug form: l 14:02: INJ, ONCE, Stop date: 12/13/20 9:02:00 CDT fentaNYL 2020-0 No Route: IV, Mem oria (ANES) 8- Drug form: l 14:02: INJ, ONCE, Stop date: 12/13/20 9:02:00 CDT propofol 2020-0 No Route: IV, Mem oria (ANES) 8- Drug form: l 14:02: INJ, ONCE, Stop date: 12/13/20 9:02:00 CDT rocuronium 2020-0 No Route: IV, Nova kamria (ANES) 8-13 Drug form: l 14:02: INJ, ONCE, Stop date: 12/13/20 9:02:00 CDT lidocaine 2020-0 No Route: IV, Me moria (ANES) 8- Drug form: l 14:02: INJ, ONCE, Stop date: 12/13/20 9:02:00 CDT Sodium 2020-0 No Route: IV, Memor ia Chloride 8-13 Total l 0.9% IV 12:30: Volume: [place] (ANES) 1000 00 1,000, mL Start date: 12/13/20 7:30:00 CDT, Stop date: 12/13/20 8:30:00 CDT Sodium 2020-0 No Route: IV, Memor ia Chloride 8-13 Total l 0.9% IV 12:30: Volume: [place] (ANES) 1000 00 1,000, mL Start date: 12/13/20 7:30:00 CDT, Stop date: 12/13/20 8:30:00 CDT Sodium 2020-0 No Route: IV, Memor ia Chloride 8-13 Total l 0.9% IV 12:30: Volume: [place] (ANES) 1000 00 1,000, mL Start date: 12/13/20 7:30:00 CDT, Stop date: 12/13/20 8:30:00 CDT prednisolon 2020-0 Yes 1 drp, Martín ana m e acetate 8-13 BOTH EYES, l 10 MG/ML 11:17: BID, 0 [place] Ophthalmic 00 Refill(s) Suspension prednisolon 0 Yes 1 drp, Martín ana m e acetate 8-13 BOTH EYES, l 10 MG/ML 11:17: BID, 0 [place] Ophthalmic 00 Refill(s) Suspension prednisolon 0 Yes 1 drp, Martín ana m e acetate 8-13 BOTH EYES, l 10 MG/ML 11:17: BID, 0 [place] Ophthalmic 00 Refill(s) Suspension gabapentin 2020-0 Yes 300 mg = 1 M emoria 300 MG Oral 8-13 cap, PO, l Capsule 11:15: BID, 0 [place] 00 Refill(s) gabapentin 0 Yes 300 mg = 1 M emoria 300 MG Oral 8-13 cap, PO, l Capsule 11:15: BID, 0 [place] 00 Refill(s) gabapentin 0 Yes 300 mg = 1 M emoria 300 MG Oral 8-13 cap, PO, l Capsule 11:15: BID, 0 [place] 00 Refill(s) apixaban 0 Yes 5 mg, PO, Martín ana m 8-13 BID, 0 l 11:14: Refill(s) [place] 00 apixaban 2020-0 Yes 5 mg, PO, Martín ana m 8-13 BID, 0 l 11:14: Refill(s) [place] 00 apixaban 2020-0 Yes 5 mg, PO, Martín ana m 8-13 BID, 0 l 11:14: Refill(s) [place] 00 Symbicort 0 Yes 2 puff, Memor ia 160/4.5 8-13 INHALER, l inhalation 11:13: BID, # 1 Her hennessy aerosol 00 ea, 3 with Refill(s) adapter Symbicort 2020-0 Yes 2 puff, Memor ia 160/4.5 8-13 INHALER, l inhalation 11:13: BID, # 1 Her hennessy aerosol 00 ea, 3 with Refill(s) adapter Symbicort 2020-0 Yes 2 puff, Memor ia 160/4.5 8-13 INHALER, l inhalation 11:13: BID, # 1 Her hennessy aerosol 00 ea, 3 with Refill(s) adapter valACYclovi 2021-0 Yes 500 mg = 1 Memoria r 500 mg 8-13 tab, PO, l oral tablet 11:12: TID, 0 Herm zackary 00 Refill(s) valACYclovi 0 Yes 500 mg = 1 Memoria r 500 mg 8-13 tab, PO, l oral tablet 11:12: TID, 0 Herm zackary 00 Refill(s) valACYclovi 0 Yes 500 mg = 1 Memoria r 500 mg 8-13 tab, PO, l oral tablet 11:12: TID, 0 Herm zackary 00 Refill(s) Trazodone Yes See Memoria Hydrochlori 8-13 Instructio l de 100 MG 11:11: ns, 1 tab Her hennessy Oral Tablet 00 PO bedtime as needed, 0 Refill(s) Trazodone Yes See Memoria Hydrochlori 8-13 Instructio l de 100 MG 11:11: ns, 1 tab Her hennessy Oral Tablet 00 PO bedtime as needed, 0 Refill(s) Trazodone Yes See Memoria Hydrochlori 8-13 Instructio l de 100 MG 11:11: ns, 1 tab Her hennessy Oral Tablet 00 PO bedtime as needed, 0 Refill(s) Hydroxyzine Yes See Memori a Hydrochlori 8-13 Instructio l de 25 MG 11:10: ns, 1 tab Herm zackary Oral Tablet 00 PO BID as needed for anxiety, 0 Refill(s) Hydroxyzine Yes See Memori a Hydrochlori 8-13 Instructio l de 25 MG 11:10: ns, 1 tab Herm zackary Oral Tablet 00 PO BID as needed for anxiety, 0 Refill(s) Hydroxyzine 0 Yes See Memori a Hydrochlori 8-13 Instructio l de 25 MG 11:10: ns, 1 tab Herm zackary Oral Tablet 00 PO BID as needed for anxiety, 0 Refill(s) normal No 1,000 mL, Memori a saline 0.9% 12-13 Rate: 100 l IV 1,000 mL 11:09: ml/hr, Herm zackary 00 Infuse over: 10 hr, Route: IV, Dosing Weight 109.091 kg, Total Volume: 1,000, Start date: 12/13/20 6:09:00 CDT, Duration: 30 day, Stop date: 01/12/21 6:08:00 CDT, BSA: 2.36 m2, 0 normal 1-0 Yes 1,000 mL, Memori a saline 0.9% 8-13 Rate: 100 l IV 1,000 mL 11:09: ml/hr, Herm zackary 00 Infuse over: 10 hr, Route: IV, Dosing Weight 109.091 kg, Total Volume: 1,000, Start date: 12/13/20 6:09:00 CDT, Duration: 30 day, Stop date: 01/12/21 6:08:00 CDT, BSA: 2.36 m2, 0 normal 1-0 No 1,000 mL, Memori a saline 0.9% 8-13 Rate: 100 l IV 1,000 mL 11:09: ml/hr, Herm zackary 00 Infuse over: 10 hr, Route: IV, Dosing Weight 109.091 kg, Total Volume: 1,000, Start date: 12/13/20 6:09:00 CDT, Duration: 30 day, Stop date: 01/12/21 6:08:00 CDT, BSA: 2.36 m2, 0 aspirin aspirin Yes Lan not [facility] defined [facility]ics Metoprolol Metoprolol Yes Lan [address] [facility] Tartrate Tartrate Goldman with food Ayanna kes - [facility] ent [facility] Valsartan Valsartan Yes Lan [address] [facility] Goldman [facility] ent [facility] Apixaban Apixaban Yes Lan as [facility] directed [facility] Clinics Atorvastati Atorvastati Yes Lan [address] [facility] n Calcium n Calcium Goldman [facility] ent Clinics Sertraline Sertraline Yes Lan TK [address] [facility] [address] HCl HCl Goldman QD [facility] Valacyclovi Valacyclovi Yes Lan [address] [facility] r HCl r HCl Goldman [facility] - [facility] Clinics Trazodone Trazodone Yes Lan [address] [facility] HCl HCl Goldman at bedtime [facility] needed [facility] HydrOXYzine HydrOXYzine Yes Lan as [facility] HCl HCl [facility] Hydrocodone Hydrocodone Yes Lan (Schedule [facility] -Acetaminop -Acetaminop Goldman II Drug) Светлана - hen hen TK 1 T PO Memoria Q 6 H PRF l PAIN Outpati ent Clinics Alprazolam Alprazolam Yes Lan (Schedule [facility] IV Drug) [facility] - TK 1 T PO Memoria BID FOR 30 l DAYS. Outpati ent Clinics Vital Signs Vital Name Observation Time Observation Value Comments Source Systolic (mm Hg) 2020-12-14 13:23:00 Martín rial [place] Diastolic (mm Hg) 2020-12-14 13:23:00 Mem orial [place] Systolic (mm Hg) 2020-12-14 12:16:00 Martín rial [place] Diastolic (mm Hg) 2020-12-14 12:16:00 Mem orial [place] Temperature Oral (F) 2020-12-14 12:16:00 99.0 F [facility] [place] Systolic (mm Hg) 2020-12-14 09:00:00 Martín rial [place] Diastolic (mm Hg) 2020-12-14 09:00:00 Mem orial [place] Respitory Rate 2020-12-13 23:00:00 Memori al [place] Respitory Rate 2020-12-13 22:15:00 Memori al [place] Respitory Rate 2020-12-13 21:45:00 Memori al [place] Temperature Oral (F) 2020-12-13 11:37:00 98.2 F [facility] Height 2020-12-09 15:54:00 180.34 cm [facility] Weight 2020-12-09 15:54:00 [facility] BMI Calculated 2020-12-09 15:54:00 Memori al [place] Procedures This patient has no known procedures. Encounters Start End Encounter Admission Attending Care Care Encounter Source Date/Time Date/Time Type Type Clinicians Facility Department ID 2020-12-16 Inpatient [facility] CAR [id number] [facility] H 08:28:36 2020-11-28 Outpatient HEMATPOUR, [facility] [id number] [place] [facility] 2020-[facility]15 Outpatient HEM[facility]OUR, [facility] [id number] [place] 11:35:13 [facility] Healt h 2020-12-13 2020-12-14 Bedded nullFlavo [facility] [id number] Memoria 10:53:00 16:45:00 Outpatient r [place] 00 [facility] 2020-12-13 2020-12-14 Bedded nullFlavo [facility] [id number] Memoria 10:53:00 16:45:00 Outpatient r [place] 00 [facility] 2020-12-13 2020-12-14 [address], [facility] [id number] 05:53:00 11:45:00 Khashayar 00 2020-12-13 2020-12-13 Outpatient [facility] CAR [id number] [facility] 05:53:00 05:53:00 2020-12-13 2020-12-13 Outpatient H[address]our, [facility] [id number] 05:53:00 05:53:00 Khashayar 2020-12-10 2020-12-11 Outpatient nullFlavo [facility] [id number] Memoria 15:30:00 04:59:59 r Care 00 [place] Herm zackary 2020-12-10 2020-12-11 Outpatient nullFlavo [facility] [id number] Memoria 15:30:00 04:59:59 r Care 00 [place] Herm zackary 2020-12-10 2020-12-10 Outpatient VISIT, [facility] [id number] 10:30:00 23:59:59 NURSE [facility] 2020-12-10 2020-12-10 Outpatient [facility] [id number] Memoria 10:30:00 10:30:00 00 [place] 2020-09-24 2020-09-24 Office [facility] [id number] 08:18:47 09:34:36 Visit Caren Flores [id number] Roxie [id number] Profjuve [id number] [address] 2018-04-13 2018-04-13 Outpatient [facility] [id number] 09:12:00 09:12:00 [facility] 2018-04-05 2018-04-05 [facility] [id number] 13:30:00 13:30:00 [facility] Results Test Description Test Time Test Comments Results Result Comments Source HEMATOLOGY 2020-12-13 17:18:00 Test Item Value Reference Range Interpretation Comme nts POC Activated Clotting Time (test code = POC Activated Clotting Yasmany e) 187 s [id number] 17:18:00 Test Item Value Reference Range Interpretation Comments POC Activated Clotting Time (test code 187 s = POC Activated Clotting Time) [id number] 17:18:00 Test Item Value Reference Range Interpretation Comments POC Activated Clotting Time (test code 187 s = POC Activated Clotting Time) [id number] 17:12:00 Test Item Value Reference Range Interpretation Comments POC Activated Clotting Time (test code 243 s = POC Activated Clotting Time) [id number] 17:12:00 Test Item Value Reference Range Interpretation Comments POC Activated Clotting Time (test code 243 s = POC Activated Clotting Time) [id number] 17:12:00 Test Item Value Reference Range Interpretation Comments POC Activated Clotting Time (test code 243 s = POC Activated Clotting Time) [id number] 15:20:00 Test Item Value Reference Range Interpretation Comments POC Activated Clotting Time (test code 357 s = POC Activated Clotting Time) [id number] 15:20:00 Test Item Value Reference Range Interpretation Comments POC Activated Clotting Time (test code 357 s = POC Activated Clotting Time) [id number] 15:20:00 Test Item Value Reference Range Interpretation Comments POC Activated Clotting Time (test code 357 s = POC Activated Clotting Time) [facility] [id number] 11:19:00Negative (12/13/20 6:19 AM) [facility] BNMPN0816-15-34 11:19:13707Xadiumtd HermannCHEM PANEL 2020-12-13 11:19:0012[facility] HermannCHEM TOXCO2067-05-58 11:19:000.93[facility] HermannCHEM GZSBW6704-79-77 11:19:80988Yljhricb HermannCHEM BUQPH6755-75-03 11:19:004.2[facility] HermannCHEM DOXBM8124-07-97 11:19:62565Ipktaqmu HermannCHEM JTFTI7665-36-98 11:19:0032[facility] HermannCHEM QIERF8696-57-17 11:19:009.6 [facility]annCHEM AGDFR9047-98-39 11:19:0010.2[facility] HermannCHEM PANEL 2020-12-13 11:19:0081[facility] SfivmonMXNMQELHZV6921-72-33 11:19:009.9[facility] GcvouslQWGTQSEPUK2758-31-16 11:19:004.37[facility] VetybuyDCUHSIARXY2776-33-74 11:19:0011.2[facility] LazxapuVFQPJIVPIZ6869-52-56 11:19:0036.0[facility] RXRQEDBYCH9184-29-86 11:19:0082.3[facility] PozseklIYUPDPAVDC2938-54-37 11:19:00 Test Item Value Reference Range Interpretation Comments MCH (test code = MCH) 25.7 pg 27.0-31.0 [facility] VgayfdrUWWQJAGMCR3314-41-65 11:19:0031.2[facility] HermannHEMATOLOGY 2020-12-13 11:19:0020.9[facility] HknxmckMHVSTERURG2292-08-25 11:19:84686Fmivxcwb NwwyvwrFHWACXLPIS1134-09-05 11:19:007.8[facility] DnwluytPHFILHWVLG4620-81-16 11:19:00 Test Item Value Reference Range Interpretation Comments PTT (test code = PTT) 31.9 s 22.9-35.8 [facility] AyfrudcZTHZAOIAEC5458-93-70 11:19:00 Test Item Value Reference Range Interpretation Comments PT (test code = PT) 14.9 s 12.0-14.7 [facility] YjxwfsqHDFZJKNHFC4809-31-33 11:19:00 Test Item Value Reference Range Interpretation Comments INR (test code = INR) 1.19 1 0.85-1.17 [facility] ZyyfjmkBFLFCSEOFH0467-64-44 11:19:0067.9[facility] HermannHEMATOLOGY 2020-12-13 11:19:0018.3[facility] XxzallwGXAAFEPWCC2147-00-66 11:19:0011.4[facility] LhxlvjvDXHEPNFEOU7250-20-72 11:19:001.7[facility] XukihqqMDOXCSSMGE9182-03-62 11:19:000.7[facility] RpjumecLYSQVOMJHV5212-11-19 11:19:006.8[facility] QTBOBINVRT1654-72-72 11:19:001.8[facility] LolgppaBIIHTSOSYZ9249-37-59 11:19:001.1 [facility] HxzbcniQNEDSECEGX3071-16-34 11:19:000.2[facility] HermannHEMATOLOGY 2020-12-13 11:19:000.1[facility] HermannBLOOD BANK VRIURMD2161-62-96 11:19:00 Negative (12/13/20 6:19 AM)[facility] HermannCHEM NUSNN2849-28-58 11:19:68825 [facility] HermannCHEM TVQBY2009-43-80 11:19:0012[facility] HermannCHEM PANEL 2020-12-13 11:19:000.93[facility] HermannCHEM YFZWI8301-92-86 11:19:92594Uwxwhlzk HermannCHEM JQHDJ2849-53-40 11:19:004.2[facility] HermannCHEM XEFRH6238-27-63 11:19:89980Xeqbyybs HermannCHEM JBMWY8422-80-41 11:19:0032[facility] HermannCHEM WVITH1791-84-88 11:19:009.6[facility] HermannCHEM HERYE9211-84-66 11:19:0010.2 [facility] HermannCHEM CNEXO9234-55-04 11:19:0081[facility] HermannHEMATOLOGY 2020-12-13 11:19:009.9[facility] WuvijyeEAKFZZXYEP2437-34-35 11:19:004.37[facility] KynhzwxLMAVPSBSGI9619-88-39 11:19:0011.2[facility] DqdmxwcCVSVQIHWRV8199-28-80 11:19:0036.0[facility] NsnhlubTRLVREQTBP3647-26-71 11:19:0082.3[facility] RDCREVBASD0161-18-77 11:19:00 Test Item Value Reference Range Interpretation Comments MCH (test code = MCH) 25.7 pg 27.0-31.0 [facility] LqqqnxoDVLVZFHASJ2501-80-49 11:19:0031.2[facility] HermannHEMATOLOGY 2020-12-13 11:19:0020.9[facility] TcpirwrGUXREGKHGX1872-71-54 11:19:63302Yindvgnf LssqakdVDNLGIAHLY0945-05-50 11:19:007.8[facility] XylnhwkVKVUBJMLAE8465-50-42 11:19:00 Test Item Value Reference Range Interpretation Comments PTT (test code = PTT) 31.9 s 22.9-35.8 [facility] BujfhbfENHKPDMSUD2345-33-49 11:19:00 Test Item Value Reference Range Interpretation Comments PT (test code = PT) 14.9 s 12.0-14.7 [facility] RjefxrwUUEBPNJTSM5900-48-84 11:19:00 Test Item Value Reference Range Interpretation Comments INR (test code = INR) 1.19 1 0.85-1.17 [facility] VxgbdolYETGFUITTY1099-57-08 11:19:0067.9[facility] HermannHEMATOLOGY 2020-12-13 11:19:0018.3[facility] WqopwuaVGFLIXVXVO4994-88-84 11:19:0011.4[facility] IvqmxlyJHLDJLNXAK4678-54-19 11:19:001.7[facility] CvfujybUBUDTCEHWE2871-45-25 11:19:000.7[facility] SsyokbjVFCBYWWTBV3236-23-89 11:19:006.8[facility] GMHOVFHWFU3222-48-28 11:19:001.8[facility] EcgcsjlIKPIRWKMME8418-15-48 11:19:001.1 [facility] GenvcoqJSRIXGMKQJ9795-87-69 11:19:000.2[facility] HermannHEMATOLOGY 2020-12-13 11:19:000.1[facility] HermannBL[facility]OD BANK RKIAYGI0833-44-18 11:19:00 Negative (12/13/20 6:19 AM)[facility] HermannCHEM OIUBE1078-70-55 11:19:53162 [facility] HermannCHEM JRJVM1224-00-22 11:19:0012[facility] HermannCHEM PANEL 2020-12-13 11:19:000.93[facility] HermannCHEM HAFQV5135-74-90 11:19:95067Javbknwf HermannCHEM TIRHB5792-79-79 11:19:004.2[facility] HermannCHEM GCQVK9322-58-17 11:19:39853Kpfskdvg HermannCHEM PXTZW6045-35-92 11:19:0032[facility] HermannCHEM GUSOC8404-71-63 11:19:009.6[facility] HermannCHEM NQBQH2345-00-31 11:19:0010.2 [facility] HermannCHEM HXHIG1758-98-82 11:19:0081[facility] HermannHEMATOLOGY 2020-12-13 11:19:009.9[facility] YtmidxeRAIBMFQMZM7654-26-16 11:19:004.37[facility] SkrhlxsHMZXTOEAWS3366-83-25 11:19:0011.2[facility] QuanrvsLIEKZYESQC5831-27-53 11:19:0036.0[facility] ItgnwbcZOCKWATNLC7076-99-54 11:19:0082.3[facility] IKGPZQZMOX0374-27-32 11:19:00 Test Item Value Reference Range Interpretation Comments MCH (test code = MCH) 25.7 pg 27.0-31.0 [facility] FrppqpbQBPAHFPOZP3179-05-70 11:19:0031.2[facility] HermannHEMATOLOGY 2020-12-13 11:19:0020.9[facility] KesfvcuQLUWSFIGRX9487-65-13 11:19:82004Kujhvolb YkfsqkfCWSCRMUCYW8304-79-29 11:19:007.8[facility] GsuquonBYVLLBGRZM3062-20-54 11:19:00 Test Item Value Reference Range Interpretation Comments PTT (test code = PTT) 31.9 s 22.9-35.8 [facility] KddbmolYBWAFLRETS5040-86-21 11:19:00 Test Item Value Reference Range Interpretation Comments PT (test code = PT) 14.9 s 12.0-14.7 [facility] KrzyeaaDXOGDECDRL3366-31-79 11:19:00 Test Item Value Reference Range Interpretation Comments INR (test code = INR) 1.19 1 0.85-1.17 [facility] YodwqecWJCPTECXMN7990-19-98 11:19:0067.9[facility] HermannHEMATOLOGY 2020-12-13 11:19:0018.3[facility] MsgqkniYVWWQABSIV9029-03-81 11:19:0011.4[facility] ZwcxxncKXHTLIXSLN7099-28-68 11:19:001.7[facility] MfiqemwPKLPLULGVI2563-73-87 11:19:000.7[facility] PbjparpZXGEHELLOA7900-90-26 11:19:006.8[facility] OHVFFXAJKY5033-98-43 11:19:001.8[facility] JlymtnyTFKDJNBBNI6146-97-17 11:19:001.1 [facility] NkovzfaQUUTHSVRNI5093-17-84 11:19:000.2[facility] HermannHEMATOLOGY 2020-12-13 11:19:000.1[facility] IsxdqspSNJWFTZGES5972-31-64 15:58:00Not Detected *NA*(12/10/20 10:58 AM)[facility] EcrxhvmXIAUWWOXWE8831-13-30 15:58:00Not Detected *NA*(12/10/20 10:58 AM)[facility] ZbowhxxFEDEDWURRM3493-67-80 15:58:00Not Detected *NA*(12/10/20 10:58 AM)[facility]
--- NOTE | 2020-12-27 18:12 | RAD REPORT ---
EXAM DESCRIPTION: CT - Head C Spine Cap Wo Con - 12/27/2020 5:37 pm TECHNIQUE: Computed axial tomography of the head and cervical spine was obtained. Coronal and sagitt al reconstruction was performed Computed axial tomography of the chest, abdomen and pelvis was obtained. Contrast was not requested. All CT scans are performed using dose optimization technique as appropriate and may include automated exposure control or mA/KV adjustment according to patient size. CLINICAL HISTORY: Head and neck injury with chest and abdominal pain status post fall COMPARISON: CT August 2020 FINDINGS: An intracranial bleed is not seen. The ventricles are normal in caliber. An extra-axial fluid collection is not noted. . A cervical fracture is not seen. No dislocation is noted. The evaluation of mediastinum, dudley, vessels, solid organs and bowel are limited secondary to the lac k of contrast administration. A mediastinal hematoma is not noted. A pleural effusion is not seen. A lung contusion is not present. Mild ground-glass opacity within the left lung base . Subacute and old left rib fractures The liver,spleen, pancreas, adrenals,kidneys and bladder do not demonstrate a traumatic injury. 5 centimeter fluid collection within the anterior compartment of proximal to mid right humerus is unc hanged IMPRESSION: 1. No acute intracranial abnormality is seen. 2. A cervical fracture is not visualized. If the patient continues have symptoms to suggest intracran ial/spinal cord pathology MRI be recommended 3. No acute traumatic abnormality involving the chest/abdomen/pelvis. 4. 2.6 centimeter ground-glass opacity left lower lobe nonspecific. Followup CT chest in 3 months is recommended for re-evaluation
--- NOTE | 2020-12-27 18:18 | RAD REPORT ---
EXAM DESCRIPTION: CT - Facial Bones W/ Mpr - 12/27/2020 5:38 pm CLINICAL HISTORY: Facial injury status post fall COMPARISON: none TECHNIQUE: Computed axial tomography of the face was obtained. Coronal and sagittal reconstruction w as performed. All CT scans are performed using dose optimization technique as appropriate and may include automated exposure control or mA/KV adjustment according to patient size. FINDINGS: A fracture is not seen. A TMJ dislocation is not noted. The globes are intact. Fluid within the right maxillary and ethmoid sinuses IMPRESSION: Negative for a facial fracture. Fluid within the sinuses may indicate acute sinusitis
--- NOTE | 2020-12-27 18:49 | ER ---
Nurse's Notes [facility] Name: Wallace Marroquin Age: 75 yrs Sex: Male : 1945 Arrival Date: 12/27/2020 Time: 17:19 Bed 4 Private MD: Diagnosis: Head injury. Abrasios and superficial lacerations face. S/P fall Presentation: 12/27 17:20 Chief complaint: EMS states: Pt was at [facility] when he stepped out of his vehicle became ss unsteady/ dizzy falling and hitting the R side of head/ eyebrow on car bumper. + LOC x 1 minute. Care prior to arrival: Cervical collar in place. Mechanism of Injury: Fall from standing position. Trauma event details: Injury occurred in the [facility], Injury occurred: in a public building. Injury occurred: December 27, 2020 Injury occurred at: 17:00. 17:20 Acuity: JOANIE 2 ss 17:20 Method Of Arrival: EMS: [facility] ss 17:31 Coronavirus screen: Client denies travel out of the [place] in the last 14 days. Ebola ss Screen: Patient denies exposure to infectious person. Patient denies travel to an Ebola-affected area in the 21 days before illness onset. Initial Sepsis Screen: Does the patient meet any 2 criteria? No. Patient's initial sepsis screen is negative. Does the patient have a suspected source of infection? No. Patient's initial sepsis screen is negative. Risk Assessment: Do you want to hurt yourself or someone else? Patient reports no desire to harm self or others. Onset of symptoms was December 27, 2020. Trauma Activation: Alert Physician: ED Physician; Name: ; Notified At: ; Arrived At: Physician: General Surgeon; Name: ; Notified At: ; Arrived At: Physician: Radiology; Name: ; Notified At: ; Arrived At: Physician: Respiratory; Name: ; Notified At: ; Arrived At: Physician: Lab; Name: ; Notified At: ; Arrived At: Historical: - Allergies: 17:42 bee venom protein (honey bee); hb - Home Meds: 17:32 Eliquis Oral [Active]; ss 17:42 Amiodarone Oral [Active]; Aspirin Oral [Active]; atorvastatin Oral [Active]; Metoprolol hb Tartrate Oral [Active]; [place] 10-325 mg Oral tab [Active]; - PMHx: 17:32 Arthritis; Atrial Fib; spinal stenosis; ss - Immunization history: Last tetanus immunization: unknown. - Social history:: Smoking status: Patient reports the use of cigarette tobacco products, smokes one-half pack cigarettes per day, Patient uses alcohol, only on a social basis. Screenin:29 Abuse screen: Denies threats or abuse. Denies injuries from another. Tuberculosis ss screening: Never had TB. 17:30 Nutritional screening: No deficits noted. Fall Risk Total Daigle Fall Scale indicates hb Low Risk Score (25-44 pts). Fall prevention measures have been instituted. Side Rails Up X 2 Frequent Obs/Assesments occuring As available Patient and Family Educated on Fall Prevention Program and strategies. Primary Survey: 17:29 NO uncontrolled hemorrhage observed. A: The patient is alert. Airway: patent, No ss supplemental oxygen in use on arrival. Oral cavity: gag reflex present, Trachea midline. Breathing/Chest: Respiratory pattern: regular, Respiratory effort: spontaneous, unlabored, Breath sounds: clear, Chest inspection: symmetrical rise and fall of the chest. Circulation: Pulses: palpable right radial artery, right posterior tibial artery, left radial artery and left posterior tibial artery. Disability Alert. Exposure/Environment: All clothing and personal items were removed. Forensic evidence collection is not deemed to be indicated at this time. Items placed in patient belonging bag. There is no evidence of uncontrolled external bleeding. A warming method has been applied: A warm blanket has been provided to the patient. 18:14 Reassessment Airway Airway Patent Breathing/Chest Respiratory pattern Regular hb Respiratory effort Spontaneous Unlabored Chest inspection Symmetrical Circulation Color [place] Disability Alert. Secondary Survey: 17:29 HEENT: Head No injury/deformity Face No injury/deformity Eyes: No injury or deformity ss noted. Ears: clear Nose: clear Throat: is clear. Musculoskeletal: Circulation, motion, and sensation intact. Range of motion: intact in all extremities, Swelling absent. Assessment: 17:40 General: Appears in no apparent distress. uncomfortable, Behavior is calm, Smells of hb alcohol. Pain: Pain currently is 9 out of 10 on a pain scale. Neuro: Level of Consciousness is awake, alert, obeys commands, Oriented to person, place, time, situation. EENT: Reports right periorbital pain, right periorbital redness and swelling noted. Cardiovascular: Patient's skin is warm and dry. Rhythm is regular. Respiratory: Airway is patent Trachea midline Respiratory effort is even, unlabored, Respiratory pattern is regular, symmetrical. GI: No deficits noted. No signs and/or symptoms were reported involving the gastrointestinal system. : No deficits noted. No signs and/or symptoms were reported regarding the genitourinary system. Derm: Skin is pink, warm \T\ dry. abrasions noted to right forehead, nose, left elbow, bilateral knees. Musculoskeletal: Reports right upper back and shoulder pain. 18:14 Reassessment: Patient appears in no apparent distress at this time. Patient and/or hb family updated on plan of care and expected duration. Pain level reassessed. Patient is alert, oriented x 3, equal unlabored respirations, skin warm/dry/pink. Vital Signs: 17:29 BP 121 / 76; Pulse 79; Resp 19; Temp 97.2(TE); Pulse Ox 95% on R/A; Weight 104.33 kg; ss Height 5 ft. 11 in. (180.34 cm); Pain 6/10; 18:14 BP 119 / 78; Pulse 78; Resp 15; Pulse Ox 98% on R/A; Pain 6/10; hb 17:29 Body Mass Index 32.08 (104.33 kg, 180.34 cm) ss [place] Coma Score: 17:29 Eye Response: spontaneous(4). Verbal Response: oriented(5). Motor Response: obeys ss commands(6). Total: 15. 18:31 Eye Response: spontaneous(4). Verbal Response: oriented(5). Motor Response: obeys pkl commands(6). Total: 15. Trauma Score (Adult): 17:29 Eye Response: spontaneous(1); Verbal Response: oriented(1); Motor Response: obeys ss commands(2); Systolic BP: > 89 mm Hg(4); Respiratory Rate: 10 to 29 per min(4); [place] Score: 15; Trauma Score: 12 ED Course: 17:19 Patient arrived in ED. ss 17:23 Jesse Her PA is PHCP. [facility] 17:23 Corby Carballo MD is Attending Physician. [facility] 17:24 Triage completed. ss 17:29 Patient has correct armband on for positive identification. Bed in low position. Call ss light in reach. Side rails up X 1. Patient maintains SpO2 saturation greater than 95% on room air. environmental monitoring specialist on. Pulse ox on. NIBP on. 17:29 Patient maintains SpO2 saturation greater than 95% on room air. Thermoregulation: warm ss blanket given to patient. 17:32 Arm band placed on right wrist. ss 17:38 CT Traumagram (Head C Spine CAP wo con) In Process Unspecified. EDMS 17:38 CT Facial Bones W/O Con In Process Unspecified. EDMS 17:39 April Augustin, RN is Primary Nurse. hb 18:50 Wound care: Dermabond to small superficial laceration above right brow and right hb catholic, wounds on right cheek and knees cleansed and antibiotic ointment applied. Pt tolerated well. 18:52 No provider procedures requiring assistance completed. Patient did not have IV access hb during this emergency room visit. Administered Medications: No medications were administered Intake: 17:40 PO: 0ml; Total: 0ml. hb Output: 17:40 Urine: 0ml; Total: 0ml. hb Outcome: 18:48 Discharge ordered by . pkmanuel 18:52 Discharged to home ambulatory. hb 18:52 Condition: stable 18:52 Discharge instructions given to patient, Instructed on discharge instructions, follow up and referral plans. medication usage, Demonstrated understanding of instructions, follow-up care, medications. 18:54 Patient's length of stay was not longer than 2 hours. hb 18:54 Patient left the ED. hb Signatures: Dispatcher [employer] EDIN Corby Carballo MD MD pkl Mickail, Joel, PA PA jmm Smirch, Shelby, RN RN April Augustin, RN RN hb Corrections: (The following items were deleted from the chart) 17:42 17:42 Home Meds: Warfarin Oral; hb hb
--- NOTE | 2020-12-27 18:49 | EDPHYS ---
Physician Documentation [facility] Name: Wallace Marroquin Age: 75 yrs Sex: Male : 1945 Arrival Date: 12/27/2020 Time: 17:19 Bed 4 Private MD: ED Physician Corby Carballo HPI: 12/27 18:24 This 75 yrs old Male presents to ER via EMS with complaints of Head Injury pkl With LOC-Adult, Fall Injury. 18:24 The patient or guardian reports abrasion. pkl 18:31 The patient or guardian reports Multiple abrasions and superficial lacerations pkl forehead, right temporal area and lateral to right eye. Context of injury: resulted from a fall, stepped out of his vehicle and fell hitting right side of head on the car bumper. Onset: The symptoms/episode began/occurred just prior to arrival. Associated signs and symptoms: Loss of consciousness: This patient experience a loss of consciousness, that was brief, for 60 second(s). Historical: - Allergies: 17:42 bee venom protein (honey bee); hb - Home Meds: 17:32 Eliquis Oral [Active]; ss 17:42 Amiodarone Oral [Active]; Aspirin Oral [Active]; atorvastatin Oral [Active]; Metoprolol hb Tartrate Oral [Active]; [place] 10-325 mg Oral tab [Active]; - PMHx: 17:32 Arthritis; Atrial Fib; spinal stenosis; ss - Immunization history: Last tetanus immunization: unknown. - Social history:: Smoking status: Patient reports the use of cigarette tobacco products, smokes one-half pack cigarettes per day, Patient uses alcohol, only on a social basis. ROS: 18:31 Eyes: Negative for injury, pain, redness, and discharge, ENT: Negative for injury, pkl pain, and discharge, Neck: Negative for injury, pain, and swelling, Cardiovascular: Negative for chest pain, palpitations, and edema, Respiratory: Negative for shortness of breath, cough, wheezing, and pleuritic chest pain, Abdomen/GI: Negative for abdominal pain, nausea, vomiting, diarrhea, and constipation, Back: Negative for injury and pain, : Negative for injury, bleeding, discharge, and swelling, MS/Extremity: Negative for injury and deformity. 18:31 Skin: Positive for abrasion(s), superficial lacerations face. 18:31 Neuro: Positive for dizziness, loss of consciousness. Exam: 18:31 Eyes: Pupils equal round and reactive to light, extra-ocular motions intact. Lids and pkl lashes normal. Conjunctiva and sclera are non-icteric and not injected. Cornea within normal limits. Periorbital areas with no swelling, redness, or edema. ENT: Nares patent. No nasal discharge, no septal abnormalities noted. Tympanic membranes are normal and external auditory canals are clear. Oropharynx with no redness, swelling, or masses, exudates, or evidence of obstruction, uvula midline. Mucous membranes moist. 18:31 Head/face: Noted is abrasion(s), that are moderate, superficial lacerations forehead, right temporal judit and lateral to the right eye. 18:31 Neck: Exam negative for nuchal rigidity. 18:31 Chest/axilla: Exam negative for acute changes. 18:31 Cardiovascular: Rate: normal, Rhythm: regular. 18:31 Respiratory: the patient does not display signs of respiratory distress, Respirations: normal, Breath sounds: are clear throughout. 18:31 Abdomen/GI: Bowel sounds: normal, Palpation: abdomen is soft and non-tender, in all quadrants. 18:31 Back: Exam negative for acute changes. 18:31 : Exam negative for acute changes. 18:31 Musculoskeletal/extremity: Exam is negative for acute changes. 18:31 Skin: Exam negative for rash. 18:31 Neuro: Orientation: is normal, Mentation: is normal, Cranial nerves: grossly normal, Motor: is normal. Vital Signs: 17:29 BP 121 / 76; Pulse 79; Resp 19; Temp 97.2(TE); Pulse Ox 95% on R/A; Weight 104.33 kg; ss Height 5 ft. 11 in. (180.34 cm); Pain 6/10; 18:14 BP 119 / 78; Pulse 78; Resp 15; Pulse Ox 98% on R/A; Pain 6/10; hb 17:29 Body Mass Index 32.08 (104.33 kg, 180.34 cm) [place] Coma Score: 17:29 Eye Response: spontaneous(4). Verbal Response: oriented(5). Motor Response: obeys commands(6). Total: 15. 18:31 Eye Response: spontaneous(4). Verbal Response: oriented(5). Motor Response: obeys pkl commands(6). Total: 15. Trauma Score (Adult): 17:29 Eye Response: spontaneous(1); Verbal Response: oriented(1); Motor Response: obeys ss commands(2); Systolic BP: > 89 mm Hg(4); Respiratory Rate: 10 to 29 per min(4); [place] Score: 15; Trauma Score: 12 MDM: 17:23 Patient medically screened. pkl 18:31 Data reviewed: vital signs, nurses notes, radiologic studies, CT scan. ED course: pkl Discussed CT Scans result with patient. Advised to follow up with PCP in 2 to 3 days. Patient understood instructions. 12/27 17:26 Order name: CT Traumagram (Head C Spine CAP wo con); Complete Time: 18:16 pkl 12/27 17:26 Order name: CT Facial Bones W/O Con; Complete Time: 18:20 pkl Administered Medications: No medications were administered Disposition Summary: 12/27/20 18:48 Discharge Ordered Location: Home pkl Problem: new pkl Symptoms: have improved pkl Condition: Stable pkl Diagnosis - Head injury. Abrasios and superficial lacerations face. S/P fall pkl Followup: pkl - With: Private Physician - When: 2 - 3 days - Reason: Re-evaluation by your physician Forms: - Medication Reconciliation Form pkl - Thank You Letter pkl - Antibiotic Education pkl - Prescription Opioid Use pkl Signatures: Dispatcher [employer] EDMS Corby Carballo MD MD pkl Lois Jordan RN RN April Augustin RN RN hb Corrections: (The following items were deleted from the chart) 17:42 17:42 Home Meds: Warfarin Oral; hb hb
[2020-12-27] MEDS ORDERED: DERMABOND SKIN ADHESIVE TOP ONE (18:56)
[2020-12-27 19:38] VITALS: BP 119/78; O2SAT 98
== END 2020-12-27 18:54 | disposition home or self-care (01) ==
LOC: ER 17:15
DX: S01.81XA Laceration without foreign body of other part of head, initial encounter (principal); W17.89XA Other fall from one level to another, initial encounter; I48.91 Unspecified atrial fibrillation; Z79.01 Long term (current) use of anticoagulants; Z91.030 Bee allergy status; F17.210 Nicotine dependence, cigarettes, uncomplicated
CPT/HCPCS: 70450; 70486; 71250; 72125; 76377; 99285; G0390

== ENCOUNTER 2022-10-28 06:30 | Day surgery (SDC) | payer OTHER ==
[2022-10-23 15:14] LABS: Absolute Lymphocytes (CBC) 1.5 K/uL (0.7-4.9); Lymphocytes % 22.3 % (15.3-44.8); MPV 7.2 fL (7.6-11.3); RBC Red Blood Cell Count 4.55 M/uL (4.33-5.43)
[2022-10-23 15:28] LABS: Potassium 3.1 mEq/L (3.5-5.1)
[2022-10-23 15:56] LABS: Protime INR 1.05
--- NOTE | 2022-10-23 16:00 | RAD REPORT ---
EXAM DESCRIPTION: RAD - Chest Pa And Lat (2 Views) - 10/23/2022 3:47 pm CLINICAL HISTORY: PREOP Chest pain. COMPARISON: Chest Single View dated 09/17/2020; Chest Pa And Lat (2 Views) dated 12/07/2019; Chest Pa A nd Lat (2 Views) dated 05/30/2018; Chest Pa And Lat (2 Views) dated 07/01/2017 FINDINGS: The lungs are diffusely emphysematous. Patchy opacity is present in both lung bases, great er on the left, probably representing infiltrate/pneumonia. Consider aspiration as a possibility. The heart is moderately enlarged.
[2022-10-28] MEDS ORDERED: FENTANYL CITR 100 MCG/2 ML ONE (06:37)
[2022-10-28] MEDS ORDERED: METOPROLOL TARTRATE 5 MG/5 ML INJ IV ONE (06:37)
[2022-10-28] MEDS ORDERED: MIDAZOLAM HCL 5 ML ONE (06:37)
[2022-10-28] MEDS ORDERED: FLUMAZENIL 0.1 MG/ML (5 mL VIAL) IV ONE (06:38)
[2022-10-28] MEDS ORDERED: PHENOL 1.4% ORAL SPRAY 180ML ONE (06:38)
[2022-10-28] MEDS ORDERED: LIDOCAINE VISCOUS 2% SOLN 15 ML UDC ONE (06:38)
[2022-10-28] MEDS ORDERED: ATROPINE SULF 1 MG/10 ML SYR IV ONE (06:38)
[2022-10-28] MEDS ORDERED: NA CHLORIDE 0.9% 500 ML ONE (07:01)
--- NOTE | 2022-10-28 18:08 | EKG ---
Test Date: 2022-10-28 Test Time: 08:42:28 Pipe Wrapping Machine Operator: KATE MEASUREMENT RESULTS: Intervals: Rate: 60 WV: 392 QRSD: 122 QT: 416 QTc: 416 [place]: P: 51 WV: 392 QRS: 75 T: 28 INTERPRETIVE STATEMENTS: Sinus rhythm with sinus arrhythmia with 1st degree AV block Nonspecific intraventricular conduction delay Borderline ECG Compared to ECG 09/18/2020 09:07:52 First degree AV block now present Intraventricular conduction delay now present Atrial fibrillation no longer present Electronically Signed On 10-28-22 18:07:04 CDT by Nathaniel Dewey
--- NOTE | 2022-10-29 06:41 | TEE ---
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 TRANSESOPHAGEAL ECHOCARDIOGRAM WAS INSERTED WITHOUT DIFFICULTY. 2. NORMAL LEFT VENTRICULAR EJECTION FRACTION 55-60% 3. NO LEFT ATRIAL APPENDAGE THOMBUS. TECHNOLOGIST: ROMULO WISE
== END 2022-10-28 09:19 | disposition home or self-care (01) ==
LOC: CCL 06:30
PROVIDERS: ATTEND Internal Medicine
DX: I48.91 Unspecified atrial fibrillation (principal); I11.0 Hypertensive heart disease with heart failure; I50.9 Heart failure, unspecified; E11.9 Type 2 diabetes mellitus without complications; Z79.01 Long term (current) use of anticoagulants; Z79.84 Long term (current) use of oral hypoglycemic drugs; Z79.899 Other long term (current) drug therapy; Z91.030 Bee allergy status
CPT/HCPCS: 93005; 93312; 85025; 80048; 36415; 85610; 82947; 85730; 71046; 92960; J2250; J7040; J0461; J3010